=== PATIENT | female | born 1945 | race American Indian/Alaskan Native ===

== ENCOUNTER 2016-10-10 10:52 | Outpatient (CLI) | payer MEDICARE ==
[2016-10-10 11:29] LABS: Hematocrit 35.3 % (30.3-42.9); Hemoglobin 11.6 gm/dl (10.1-14.3); Mean Corpuscular HGB Conc 33 % (30-34); Mean Corpuscular Hemoglobin 27 pg (28-32); Mean Corpuscular Volume 83 fl (79-97); Platelet Count 138 K/mm3 (140-440); Red Blood Count 4.25 M/mm3 (3.65-5.03); White Blood Count 8.4 K/mm3 (4.5-11.0)
[2016-10-10 11:39] LABS: INR 1.08 (0.87-1.13)
[2016-10-10 11:40] LABS: Partial Thromboplastin Time 24.6 Sec. (24.2-36.6)
[2016-10-10 11:43] LABS: Anion Gap 16 mmol/L; BUN/Creatinine Ratio 14.28; Blood Urea Nitrogen 10 mg/dL (7-17); Calcium 9.5 mg/dL (8.4-10.2); Carbon Dioxide 28 mmol/L (22-30); Chloride 101.1 mmol/L (98-107); Glucose 114 mg/dL (65-100); Potassium 4.2 mmol/L (3.6-5.0); Sodium 141 mmol/L (137-145)
[2016-10-10] MEDS ORDERED: NACL ONE (12:19)
== END 2016-10-10 10:53 | disposition home or self-care (01) ==
LOC: CT 10:52
PROVIDERS: ATTEND Radiology Vascular & Interventional Radiology
DX: I70.219 Atherosclerosis of native arteries of extremities with intermittent claudication, unspecified extremity (principal)
CPT/HCPCS: 36415; 75635; 80048; 85027; 85610; 85730; Q9967

== ENCOUNTER 2018-07-29 09:18 | Emergency (ER) | payer MEDICARE ==
--- NOTE | 2018-07-29 10:05 | Emergency Department Report ---
ED General Adult HPI - General Chief complaint: Extremity Problem,Nontraumatic Stated complaint: DIFFICULTY AMBULATING Time Seen by Provider: 07/29/18 09:58 Source: patient, EMS (ems notes not available at time of chart dictation), RN notes reviewed, old records reviewed Mode of arrival: Stretcher Limitations: Other (the patient is a poor historian) - History of Present Illness Initial comments: This is a 72-year-old female. The patient is not known to this provider previously. She reportedly has a past medical history of "vascular problems", hypertension, heart disease, diabetes, DVT The patient presents to the emergency room with a complaint of lower extremity discoloration, and discomfort. She reports the symptoms have been present for " some time", and further endorses that the symptoms have been present for many months. Of note, the patient was registered in this emergency room in April 2018, reportedly left prior to medical evaluation secondary to prolonged wait time. The patient reports that her symptoms today are not new, worsening or different, and that they are at their baseline. She reports that she came in today because her daughter instructed her to. She denies headache, neck pain, chest pain, abdominal pain, shortness of breath, urinary symptoms. She reports that she is hungry, and would like to eat. As far she can recall, she does not have a local vascular physician. She's not sure she has a local primary care doctor. The patient's daughter is a much more comprehensive historian. She reports the patient's primary care doctor is Dr. Jelena Johnson She reports the patient's vascular doctor is Dr. Navas, in [place]. She reports that the patient has chronic vascular problems, had an appointment with the patient's vascular surgeon on June 17, and has a follow-up appointment with her vascular physician on 08/04/2018. The patient has been having difficulty and waiting at home, but reportedly has a cane and a walker. This is a chronic problem. -: Gradual, month(s) Location: upper extremity, lower extremity Radiation: non-radiation Severity scale (0 -10): 4 Consistency: constant Improves with: rest Worsens with: movement Associated Symptoms: denies other symptoms - Related Data Home Medications Medication Instructions Recorded Confirmed Last Taken Aspirin [Adult Aspirin] 81 mg PO DAILY 07/29/18 07/29/18 Unknown Cetirizine HCl [Zyrtec] 10 mg PO DAILY PRN 07/29/18 07/29/18 Unknown Clopidogrel Bisulfate [Plavix] 75 mg PO DAILY 07/29/18 07/29/18 Unknown Enalapril Maleate [Vasotec] 10 mg PO BID 07/29/18 07/29/18 Unknown Furosemide [Lasix TAB] 40 mg PO QDAY 07/29/18 07/29/18 Unknown Ibuprofen [Motrin] 200 mg PO Q6H PRN 07/29/18 07/29/18 Unknown Metformin HCl [Glucophage] 850 mg PO BIDWM 07/29/18 07/29/18 Unknown Nitroglycerin [Nitro Dur] 0.2 mg TD QDAY 07/29/18 07/29/18 Unknown Potassium Chloride [K-Dur] 20 meq PO QDAY 07/29/18 07/29/18 Unknown Propranolol [Inderal] 40 mg PO DAILY 07/29/18 07/29/18 Unknown Ranitidine HCl [Zantac 150 MG TAB] 150 mg PO QPM 07/29/18 07/29/18 Unknown Rosuvastatin Calcium [Crestor] 20 mg PO QPM 07/29/18 07/29/18 Unknown Allergies Allergy/AdvReac Type Severity Reaction Status Date / Time montelukast [From Singulair] Allergy Unknown Verified 07/29/18 09:49 ED Review of Systems ROS: Stated complaint: DIFFICULTY AMBULATING Other details as noted in HPI Constitutional: denies: fever Eyes: denies: vision change ENT: denies: epistaxis Respiratory: denies: cough Cardiovascular: denies: chest pain Gastrointestinal: denies: abdominal pain, nausea, vomiting Genitourinary: denies: dysuria Musculoskeletal: arthralgia, myalgia Skin: other (chronic skin discoloration) Neurological: weakness (global weakness) ED Past Medical Hx - Past Medical History Previous Medical History?: Yes Hx Hypertension: Yes Hx Heart Attack/AMI: Yes Hx Diabetes: Yes Hx Deep Vein Thrombosis: Yes Additional medical history: VASCULAR PROBLEMS - Surgical History Past Surgical History?: Yes Hx Open Heart Surgery: Yes - Social History Smoking Status: Unknown if ever smoked - Medications Home Medications: Home Medications Medication Instructions Recorded Confirmed Last Taken Type Aspirin [Adult Aspirin] 81 mg PO DAILY 07/29/18 07/29/18 Unknown History Cetirizine HCl [Zyrtec] 10 mg PO DAILY PRN 07/29/18 07/29/18 Unknown History Clopidogrel Bisulfate [Plavix] 75 mg PO DAILY 07/29/18 07/29/18 Unknown History Enalapril Maleate [Vasotec] 10 mg PO BID 07/29/18 07/29/18 Unknown History Furosemide [Lasix TAB] 40 mg PO QDAY 07/29/18 07/29/18 Unknown History Ibuprofen [Motrin] 200 mg PO Q6H PRN 07/29/18 07/29/18 Unknown History Metformin HCl [Glucophage] 850 mg PO BIDWM 07/29/18 07/29/18 Unknown History Nitroglycerin [Nitro Dur] 0.2 mg TD QDAY 07/29/18 07/29/18 Unknown History Potassium Chloride [K-Dur] 20 meq PO QDAY 07/29/18 07/29/18 Unknown History Propranolol [Inderal] 40 mg PO DAILY 07/29/18 07/29/18 Unknown History Ranitidine HCl [Zantac 150 MG TAB] 150 mg PO QPM 07/29/18 07/29/18 Unknown History Rosuvastatin Calcium [Crestor] 20 mg PO QPM 07/29/18 07/29/18 Unknown History ED Physical Exam - General Limitations: Physical Limitation General appearance: alert, in no apparent distress, obese - Head Head exam: Present: atraumatic, normocephalic - Eye Eye exam: Present: normal appearance, EOMI. Absent: nystagmus - ENT ENT exam: Present: normal exam, normal orophraynx, mucous membranes moist, normal external ear exam - Neck Neck exam: Present: normal inspection, full ROM. Absent: tenderness, meningismus - Respiratory Respiratory exam: Present: normal lung sounds bilaterally. Absent: respiratory distress - Cardiovascular Cardiovascular Exam: Present: regular rate, normal rhythm, normal heart sounds. Absent: bradycardia, tachycardia, irregular rhythm, systolic murmur, diastolic murmur, rubs, gallop - GI/Abdominal GI/Abdominal exam: Present: soft. Absent: distended, tenderness, guarding, rebound, rigid, pulsatile mass - Extremities Exam Extremities exam: Present: normal inspection, full ROM, tenderness, pedal edema, calf tenderness, other (2+ pulses noted in the bilateral upper extremities. 1+ pulses noted in the right femoral region. Thready pulses noted in the left femoral region. Bilateral lower extremities are swollen, with chronic venous stasis and discoloration. There is a linear scar on the left medial thigh. Pulses not palpable in the bilateral dorsalis pedis regions.) - Back Exam Back exam: Present: normal inspection, full ROM. Absent: tenderness, CVA tenderness (R), paraspinal tenderness, vertebral tenderness - Neurological Exam Neurological exam: Present: alert, oriented X3, other (Extraocular movements intact. Tongue midline. No facial droop. Facial sensation intact to light touch in the V1, V2, V3 distribution bilaterally. 5 and 5 strength in 4 extremities.. Sensation is intact to light touch in 4 extremities.). Absent: motor sensory deficit - Psychiatric Psychiatric exam: Present: normal affect, normal mood - Skin Skin exam: Present: warm, dry ED Course Vital Signs 07/29/18 07/29/18 09:23 10:05 Temperature 98.4 F Pulse Rate 77 Respiratory 18 18 Rate Blood Pressure 149/119 O2 Sat by Pulse 96 99 Oximetry - Reevaluation(s) Reevaluation #1: 07/29/18 10:58 Differential diagnosis, including but not limited to: Chronic peripheral artery disease, debility, DVT assessment and plan: 72-year-old female accompanied by daughter, with chronic lower extremity problems, pain and swelling, does not appear to be acutely infected, does not appear to be acutely decompensated. The patient's daughter is seeking a second opinion. She has follow-up patient's vascular surgeon within the next week. Unlikely that the patient has an emergent condition at this time. Screening laboratory studies unremarkable. Lower extremity duplex, DVT study pending at this time. Case management consult has been requested to assist with home physical therapy and rehabilitation options. 07/29/18 10:59 Reevaluation #2: 07/29/18 13:09 Patient noted to be walking around without difficulty. Patient and daughter states that the weight is taking too long, and they're going to leave before the completion of their medical evaluation, and interpretation of their extremity duplex studies and DVT studies. Patient is alert and oriented 3, clinically sober, free from distracting injury, and is able to articulate the risks of leaving without a complete evaluation, including , disability, paralysis, loss of quality of life, in her own words. Patient's daughter at the bedside, and also endorses a desire to leave, and endorses understanding of the aforementioned possibilities, without a complete medical evaluation. Patient was encouraged to return to the emergency room right away if and when she changes her mind, or to follow up with her vascular surgeon as soon as possible. Of note, DVT study negative for acute disease. Reevaluation #3: 07/29/18 13:11 Nursing team has been instructed to contact the patient, and have her brick picker her discharge paperwork, as she left without receiving her paperwork. ED Medical Decision Making - Lab Data Result diagrams: 07/29/18 10:10 07/29/18 10:10 Vital Signs 07/29/18 07/29/18 09:23 10:05 Temperature 98.4 F Pulse Rate 77 Respiratory 18 18 Rate Blood Pressure 149/119 O2 Sat by Pulse 96 99 Oximetry Lab Results 07/29/18 07/29/18 07/29/18 Range/Units 10:10 10:10 10:10 WBC 5.9 (4.5-11.0) K/mm3 RBC 3.74 (3.65-5.03) M/mm3 Hgb 9.9 L (10.1-14.3) gm/dl Hct 30.9 (30.3-42.9) % MCV 83 (79-97) fl MCH 27 L (28-32) pg MCHC 32 (30-34) % RDW 18.9 H (13.2-15.2) % Plt Count 155 (140-440) K/mm3 PT 16.2 H (12.2-14.9) Sec. INR 1.22 H (0.87-1.13) APTT 27.4 (24.2-36.6) Sec. Sodium (137-145) mmol/L Potassium (3.6-5.0) mmol/L Chloride (98-107) mmol/L Carbon Dioxide (22-30) mmol/L Anion Gap mmol/L BUN (7-17) mg/dL Creatinine (0.7-1.2) mg/dL Estimated GFR ml/min BUN/Creatinine Ratio % Glucose (65-100) mg/dL Calcium (8.4-10.2) mg/dL Magnesium 2.00 (1.7-2.3) mg/dL Total Bilirubin (0.1-1.2) mg/dL AST (5-40) units/L ALT (7-56) units/L Alkaline Phosphatase (35-129) units/L Total Protein (6.3-8.2) g/dL Albumin (3.9-5) g/dL Albumin/Globulin Ratio % 07/29/18 Range/Units 10:10 WBC (4.5-11.0) K/mm3 RBC (3.65-5.03) M/mm3 Hgb (10.1-14.3) gm/dl Hct (30.3-42.9) % MCV (79-97) fl MCH (28-32) pg MCHC (30-34) % RDW (13.2-15.2) % Plt Count (140-440) K/mm3 PT (12.2-14.9) Sec. INR (0.87-1.13) APTT (24.2-36.6) Sec. Sodium 140 (137-145) mmol/L Potassium 3.8 (3.6-5.0) mmol/L Chloride 103.9 (98-107) mmol/L Carbon Dioxide 23 (22-30) mmol/L Anion Gap 17 mmol/L BUN 7 (7-17) mg/dL Creatinine 0.7 (0.7-1.2) mg/dL Estimated GFR > 60 ml/min BUN/Creatinine Ratio 10 % Glucose 107 H (65-100) mg/dL Calcium 8.7 (8.4-10.2) mg/dL Magnesium (1.7-2.3) mg/dL Total Bilirubin 1.40 H (0.1-1.2) mg/dL AST 23 (5-40) units/L ALT 13 (7-56) units/L Alkaline Phosphatase 88 (35-129) units/L Total Protein 7.2 (6.3-8.2) g/dL Albumin 3.5 L (3.9-5) g/dL Albumin/Globulin Ratio 0.9 % - Radiology Data Radiology results: report reviewed, image reviewed Print Report Referring Physician: VICKY OSBORN Patient Name: GAY BONNER Date of : 1945 Sex: Female Report Date: 2018-07-29 Report Status: Finalized Findings [facility] [address] [id number] Vascular Lab Report Signed Patient: GAY BONNER MR#: [id number] : 1945 Acct:[id number] Age/Sex: 72 / F ADM Date: 07/29/18 Loc: ED Attending Dr: Ordering Physician: VICKY OSBORN MD Date of Service: 07/29/18 Procedure(s): VL venous duplex LE BILAT Accession Number(s): [id number] cc: VICKY OSBORN MD PROCEDURE: VL VENOUS DUPLEX LE BILAT TECHNIQUE: Ultrasound examination of the deep venous system of the right leg and left leg. Technologist reports examination limited due to patient's pain and edema. Suboptimal visualization of the SFV and calf veins bilaterally HISTORY: b/l lower ext swelling COMPARISONS: None FINDINGS: RIGHT LEG: Normal compressibility, vascular patency, and augmentation are present diffusely throughout the visualized portion of the deep veins. No abnormal intraluminal echoes are visualized to suggest deep vein thrombus. Nonspecific slight lymph node prominence right inguinal fossa. Lower leg edema. LEFT LEG: Normal compressibility, vascular patency, and augmentation are present diffusely throughout the visualized portion of the deep veins. No abnormal intraluminal echoes are visualized to suggest deep vein thrombus. Lower leg edema. A nonspecific popliteal fossa hypoechoic focus is suggestive of a fluid collection measuring 3.7 x 1.9 cm. Color Doppler reveals no internal vascularity in this lesion. This may reflect a Rico's cyst. IMPRESSION: Popliteal fossa fluid collection suggestive of left leg Rico's cyst. No ultrasound evidence of DVT in the right leg No ultrasound evidence of DVT in the left leg This document is e lectronically signed by Silas Carrillo MD., July 29 2018 01:02:09 PM ET Transcribed By: BAL Dictated By: SILAS CARRILLO MD Electronically Authenticated By: SILAS CARRILLO MD Signed Date/Time: 07/29/18 2695 Critical care attestation.: If time is entered above; I have spent that time in minutes in the direct care of this critically ill patient, excluding procedure time. ED Disposition Clinical Impression: Peripheral artery disease, Dependent edema, Debility, unspecified Disposition: DC-07 LEFT AGAINST MED ADVICE Is pt being admited?: No Does the pt Need Aspirin: No Condition: Undetermined Additional Instructions: Continue outpatient medications. As we discussed, you have left the hospital/emergency room AGAINST MEDICAL ADVICE. By leaving, you risked , disability, paralysis, permanent loss of quality of life. The ER is open 24 hours a day, 7 days a week. It never closes. Please return to the emergency room right away if and when you change your mind. If you decide not to return to the emergency room, please follow-up with the listed physician referrals as soon as possible. Please follow up with the patient's vascular surgeon as soon as possible [employer] Service Director Business Hours: Saturday to Saturday: 8:30 a.m. 4:30 p[address] [address], [address] [place] [address] Case management consult has been requested to determine if the patient is el igible for home physical therapy, home health. Please return to the emergency room right away with new pain, worsened pain, migration of pain, projectile vomiting, change in mental status, confusion, new, worsening or different symptoms. Patient's blood pressure noted to be elevated in the emergency room, the patient should follow-up with her primary care doctor for this within the next 4-6 we eks. Long-term complications of hypertension and elevated blood pressure include stroke, heart attack, disability, paralysis, loss of quality of life
[2018-07-29 10:29] LABS: Hematocrit 30.9 % (30.3-42.9); Hemoglobin 9.9 gm/dl (10.1-14.3); Mean Corpuscular HGB Conc 32 % (30-34); Mean Corpuscular Volume 83 fl (79-97); Platelet Count 155 K/mm3 (140-440); Red Blood Count 3.74 M/mm3 (3.65-5.03); Red Cell Distribution Width 18.9 % (13.2-15.2)
[2018-07-29 10:35] LABS: INR 1.22 (0.87-1.13); Partial Thromboplastin Time 27.4 Sec. (24.2-36.6)
[2018-07-29 10:45] LABS: Alanine Aminotransferase 13 units/L (7-56); Albumin 3.5 g/dL (3.9-5); BUN/Creatinine Ratio 10; Blood Urea Nitrogen 7 mg/dL (7-17); Calcium 8.7 mg/dL (8.4-10.2); Hemolysis Index 20
--- NOTE | 2018-07-29 13:05 | Vascular Lab Report ---
PROCEDURE: VL VENOUS DUPLEX LE BILAT TECHNIQUE: Ultrasound examination of the deep venous system of the right leg and left leg. Technolog ist reports examination limited due to patient's pain and edema. Suboptimal visualization of the SFV and calf veins bilaterally HISTORY: b/l lower ext swelling COMPARISONS: None FINDINGS: RIGHT LEG: Normal compressibility, vascular patency, and augmentation are present diffusely throughout the visua lized portion of the deep veins. No abnormal intraluminal echoes are visualized to suggest deep vein thrombus. Nonspecific slight lymph node prominence right inguinal fossa. Lower leg edema. LEFT LEG: Normal compressibility, vascular patency, and augmentation are present diffusely throughout the visua lized portion of the deep veins. No abnormal intraluminal echoes are visualized to suggest deep vein thrombus. Lower leg edema. A nonspecific popliteal fossa hypoechoic focus is suggestive of a fluid collection measuring 3.7 x 1. 9 cm. Color Doppler reveals no internal vascularity in this lesion. This may reflect a Rico's cyst. IMPRESSION: Popliteal fossa fluid collection suggestive of left leg Rico's cyst. No ultrasound evidence of DVT in the right leg No ultrasound evidence of DVT in the left leg This document is electronically signed by Silas Carrillo MD., July 29 2018 01:02:09 PM ET
[2018-07-29 14:31] VITALS: BP 148/98
--- NOTE | 2018-07-29 14:33 | Vascular Lab Report ---
PROCEDURE: VL ARTERIAL DUPLEX LE BILAT TECHNIQUE: Duplex Doppler ultrasound examination of the arteries of the right leg and left leg. Tech nically difficult exam limited by patient pain and edema. Note: Measurement of carotid stenosis is ba sed on flow velocity values that correlate with the [place] Symptomatic Carotid Endarterectomy Trial (NASCET) based stenosis criteria using the internal carotid artery diameter as the denominator for stenosis calculation. HISTORY: b/l lower ext swelling pain poor pulses COMPARISONS: None FINDINGS: RIGHT LEG: Elevated peak systolic velocities: Proximal REPAIRER HELPER REPAIRER HELPER, 230 cm/s. Distal REPAIRER HELPER, 181 cm/s Proximal Femoral artery, 171 cm/s Distal femoral artery versus collateral circulation, 349 cm/s Abnormal monophasic waveforms in the proximal femoral artery and popliteal artery Flow not visualized in anterior tibial artery. This may be occlusion or artifact of obscured vessel LEFT LEG: Unable to visualize distal iliac artery, common femoral artery, profunda femoral artery, and anterior tibial artery, limiting the examination. No definite acute systolic velocity elevation. Possible stent in proximal femoral artery. Correlate with vascular history. Abnormal monophasic waveforms in all visualized arteries. Visualized flow in region of posterior tibi al artery may be a artery or collateral. IMPRESSION: Examination limited by patient edema and pain tolerance to probe pressure. Some arteries not visualiz ed bilaterally Possible stent in left proximal femoral artery Multilevel velocity elevation in the right leg arteries, above the knee level, may reflect. 50% diame ter stenosis Flow not visualized in right anterior tibial artery may reflect occlusion or artifact of obscured ves laurita Multilevel diminished arterial waveforms bilaterally compatible with multifocal atherosclerotic snyder e This document is electronically signed by Silas Carrillo MD., July 29 2018 02:30:23 PM ET
== END 2018-07-29 12:53 | disposition left against medical advice (07) ==
LOC: ED 09:18
DX: I73.9 Peripheral vascular disease, unspecified (principal); R60.9 Edema, unspecified; R53.81 Other malaise; I10 Essential (primary) hypertension; I25.2 Old myocardial infarction; E11.9 Type 2 diabetes mellitus without complications
CPT/HCPCS: 36415; 80053; 82550; 83735; 85027; 85610; 85730; 93925; 93970

== ENCOUNTER 2019-03-15 08:29 | Inpatient (IN) | payer MEDICARE ==
[2019-03-15] MEDS ORDERED: SODIUM CHLORIDE 0.9% 1000 ML 1,000 ML IV ONE (09:56)
--- NOTE | 2019-03-15 10:01 | Emergency Department Report ---
- General Chief complaint: Weakness Stated complaint: NOT EATEN IN 3 DAYS Time Seen by Provider: 03/15/19 09:54 Source: family, EMS Mode of arrival: Stretcher Limitations: Other - History of Present Illness Initial comments: 73-year-old -[place] female who is currently on hospice with the DNR/DNI comes in by EMS accompanied by daughter for not eating in 3 days. Patient is a dementia patient. Daughter reports the patient has a decubitus ulcer on her right buttocks. Daughter reports that she's been having difficulty given her medication as she does does not want to eat she has been placing it in warm Broth till it dissolves and patient consumes that. MD Complaint: generalized weakness Onset/Timin -: days(s) Location: generalized Associated Symptoms: loss of appetite - Related Data Home Medications Medication Instructions Recorded Confirmed Last Taken Enalapril Maleate [Vasotec] 10 mg PO BID 07/29/18 03/15/19 Unknown Furosemide [Lasix TAB] 40 mg PO QDAY 07/29/18 03/15/19 Unknown Nitroglycerin [Nitro Dur] 0.2 mg TD QDAY 07/29/18 03/15/19 Unknown LORazepam [Ativan] 0.5 mg PO Q4H PRN 03/15/19 03/15/19 Unknown traMADoL [Ultram 50 MG tab] 50 mg PO Q8H 03/15/19 03/15/19 Unknown Previous Rx's Medication Instructions Recorded Last Taken Type Aspirin EC [Halfprin EC] 81 mg PO DAILY tablet 03/19/19 Unknown Rx AtorvaSTATin [Lipitor] 40 mg PO QHS #30 tablet 03/19/19 Unknown Rx cephALEXin [Keflex] 500 mg PO BID #20 cap 03/19/19 Unknown Rx Allergies Allergy/AdvReac Type Severity Reaction Status Date / Time montelukast [From Singulair] Allergy Unknown Verified 07/29/18 09:49 ED Review of Systems ROS: Stated complaint: NOT EATEN IN 3 DAYS Other details as noted in HPI Comment: All other systems reviewed and negative ED Past Medical Hx - Past Medical History Hx Hypertension: Yes Hx Heart Attack/AMI: Yes Hx Diabetes: Yes Hx Deep Vein Thrombosis: Yes Additional medical history: VASCULAR PROBLEMS - Surgical History Hx Open Heart Surgery: Yes - Social History Smoking Status: Unknown if ever smoked Substance Use Type: None - Medications Home Medications: Home Medications Medication Instructions Recorded Confirmed Last Taken Type Enalapril Maleate [Vasotec] 10 mg PO BID 07/29/18 03/15/19 Unknown History Furosemide [Lasix TAB] 40 mg PO QDAY 07/29/18 03/15/19 Unknown History Nitroglycerin [Nitro Dur] 0.2 mg TD QDAY 07/29/18 03/15/19 Unknown History LORazepam [Ativan] 0.5 mg PO Q4H PRN 03/15/19 03/15/19 Unknown History traMADoL [Ultram 50 MG tab] 50 mg PO Q8H 03/15/19 03/15/19 Unknown History Aspirin EC [Halfprin EC] 81 mg PO DAILY tablet 03/19/19 Unknown Rx AtorvaSTATin [Lipitor] 40 mg PO QHS #30 tablet 03/19/19 Unknown Rx cephALEXin [Keflex] 500 mg PO BID #20 cap 03/19/19 Unknown Rx ED Physical Exam - General Limitations: Altered Mental Status (dementia), Other - Head Head exam: Present: atraumatic, normocephalic - Eye Eye exam: Present: normal appearance - ENT ENT exam: Present: mucous membranes dry - Neck Neck exam: Present: normal inspection, full ROM - Respiratory Respiratory exam: Present: normal lung sounds bilaterally. Absent: respiratory distress - Cardiovascular Cardiovascular Exam: Present: tachycardia - GI/Abdominal GI/Abdominal exam: Present: soft, normal bowel sounds. Absent: distended, tenderness - Neurological Exam Neurological exam: Present: alert - Expanded Skin Exam Expanded Distribution of rash: RLE (hip) Description of rash: Present: size (half a dollar ), tenderness, erythematous ED Course Vital Signs 03/15/19 03/15/19 03/15/19 10:04 11:15 14:00 Temperature 97.8 F Pulse Rate 119 H 122 H 120 H Respiratory 20 23 23 Rate Blood Pressure Blood Pressure 112/79 101/42 99/36 [Right] O2 Sat by Pulse 100 98 97 Oximetry 03/15/19 14:58 Temperature Pulse Rate 112 H Respiratory Rate Blood Pressure 110/63 Blood Pressure [Right] O2 Sat by Pulse Oximetry ED Medical Decision Making - Lab Data Result diagrams: 03/19/19 05:55 03/17/19 05:43 Critical care attestation.: If time is entered above; I have spent that time in minutes in the direct care of this critically ill patient, excluding procedure time. ED Disposition Clinical Impression: Sepsis Qualifiers: Sepsis acute organ dysfunction status: unspecified Decubitus skin ulcer Qualifiers: Pressure injury location: sacral region Pressure injury stage: unstageable Qualified Code(s): L89.150 - Pressure ulcer of sacral region, unstageable T2DM (type 2 diabetes mellitus) Qualifiers: Diabetes mellitus longterm insulin use: unspecified intermediate teacher insulin use status HTN (hypertension) Qualifiers: Hypertension type: essential hypertension Qualified Code(s): I10 - Essential (primary) hypertension Disposition: OP ADMIT IP TO THIS HOSP Is pt being admited?: Yes Does the pt Need Aspirin: Yes Condition: Poor
--- NOTE | 2019-03-15 12:01 | XRay Report ---
CHEST 1 VIEW, 03/15/2019 11:27 AM CLINICAL INFORMATION/INDICATION: Chest pain and shortness of breath COMPARISON: Chest radiograph, 08/06/2018 FINDINGS: SUPPORT DEVICES: None. HEART: There is stable moderate enlargement of the cardiac silhouette. LUNGS/PLEURA: Prominent interstitial markings are again noted without evidence of sophia pulmonary ricco ma or large pleural effusion. ADDITIONAL FINDINGS: No additional acute findings. IMPRESSION: 1. Stable enlargement of the cardiac silhouette without evidence of overt pulmonary edema. Signer Name: Lyubov Suárez MD Signed: 03/15/2019 11:57 AM Workstation Name: [id number]
[2019-03-15 12:02] LABS: Creatine Kinase MB 7.2 ng/mL (0.0-4.0)
[2019-03-15 12:03] LABS: Basophils # (Auto) 0.1 K/mm3 (0.0-0.1); Basophils % (Auto) 0.4 % (0.0-1.8); Hematocrit 41.8 % (30.3-42.9); Hemoglobin 13.9 gm/dl (10.1-14.3); Lymphocytes # (Auto) 1.5 K/mm3 (1.2-5.4); Lymphocytes % (Auto) 9.7 % (13.4-35.0); Mean Corpuscular HGB Conc 33 % (30-34); Mean Corpuscular Volume 86 fl (79-97); Monocytes # (Auto) 1.2 K/mm3 (0.0-0.8); Monocytes % (Auto) 7.8 % (0.0-7.3); Platelet Count 254 K/mm3 (140-440); Red Blood Count 4.87 M/mm3 (3.65-5.03); Red Cell Distribution Width 15.1 % (13.2-15.2)
[2019-03-15 12:06] LABS: Alanine Aminotransferase 18 units/L (7-56); Albumin 3.6 g/dL (3.9-5); BUN/Creatinine Ratio 35; Blood Urea Nitrogen 28 mg/dL (7-17); Calcium 9.9 mg/dL (8.4-10.2); Hemolysis Index 8
[2019-03-15] MEDS ORDERED: MEROPENEM/NS 1 GRAM/100 ML 1 GRAM/100 ML BAG IV ONE (12:19)
[2019-03-15 12:26] LABS: INR 1.31 (0.87-1.13); Partial Thromboplastin Time 25.4 Sec. (24.2-36.6)
[2019-03-15 12:49] LABS: Chol/HDL Ratio 4.48 %
--- NOTE | 2019-03-15 12:54 | History and Physical Report ---
History of Present Illness Chief complaint: She is getting worse, and her wound looks bad History of present illness: 73 YO Female with HTN, Sacral Decubitus Ulcer present to admission, CAG S/P CABG, MA, DM, DVT not on therapeutic anticoagulation, PVD presents to ED for evaluation. Pt daughter notified hospice provider and revoked hospice benefit and request aggressive medical care. Pt is confused and lethargic and unable to provide detailed history. Pt history provided by daughter who is at bedside during exam and interview. As per daughter, the patient has become increasingly confused, has decreased interaction with family, and has not eaten inthe past 3 days. Pt is bedbound, and requires 5/6 assistance with ADL's. Pt daughter also reports worsening discharge from Right sacral Ulcer. EMS notified, and upon arrival the patient was found to be in distress. Pt transported to [facility]. Pt seen and evaluated in ED and found to have Sepsis, and infected sacral decuitus ulcer. Pt admitted to [facility] unit and initiated on Sepsis protocol. Q sofa score:3. Pt is confused and lethargic but is able to protect her airway. Prior admission on 08/06/18 reviewed. All listed medication reconciled at time of admission. Advanced care planning conducted in ED. Past History Past Medical History: other (see hpi) Past Surgical History: CABG Social history: . denies: smoking, alcohol abuse, prescription drug abuse Family history: diabetes, hypertension Medications and Allergies Allergies Allergy/AdvReac Type Severity Reaction Status Date / Time montelukast [From Singulair] Allergy Unknown Verified 07/29/18 09:49 Home Medications Medication Instructions Recorded Confirmed Last Taken Type Enalapril Maleate [Vasotec] 10 mg PO BID 07/29/18 03/15/19 Unknown History Furosemide [Lasix TAB] 40 mg PO QDAY 07/29/18 03/15/19 Unknown History Nitroglycerin [Nitro Dur] 0.2 mg TD QDAY 07/29/18 03/15/19 Unknown History LORazepam [Ativan] 0.5 mg PO Q4H PRN 03/15/19 03/15/19 Unknown History traMADol [Ultram 50 MG tab] 50 mg PO Q8H 03/15/19 03/15/19 Unknown History Active Meds: Active Medications MEROPENEM/NS 1 GRAM/100 ML (Merrem/Ns 1 Gram/100 Ml) 1 gram in 100 mls @ 100 mls/hr IV ONCE ONE Stop: 03/15/19 13:18 Vancomycin HCl 1,250 mg/ (Sodium Chloride) 275 mls @ 183.333 mls/hr IV ONCE ONE Stop: 03/15/19 14:29 Review of Systems ROS unobtainable: due to mental status Exam - Constitutional Vitals: Temp Pulse Resp BP Pulse Ox 97.8 F 119 H 20 112/79 100 03/15/19 10:04 03/15/19 10:04 03/15/19 10:04 03/15/19 10:04 03/15/19 10:04 General appearance: Present: mild distress - EENT Eyes: Present: PERRL ENT: hearing intact, clear oral mucosa - Neck Neck: Present: supple, normal ROM - Respiratory Respiratory effort: normal Respiratory: bilateral: CTA - Cardiovascular Heart Sounds: Present: S1 & S2. Absent: rub, click - Extremities Extremities: pulses symmetrical, No edema Peripheral Pulses: within normal limits - Abdominal General gastrointestinal: Present: soft, non-tender, non-distended, normal bowel sounds Female genitourinary: Present: normal - Integumentary Integumentary: Present: warm (Sacral decubitus ulcer, ), dry - Musculoskeletal Musculoskeletal: generalized weakness - Psychiatric Psychiatric: no appropriate mood/affect, no intact judgment & insight, no memory intact - Neurologic Neurologic: CNII-XII intact, moves all extremities Results - Labs CBC & Chem 7: 03/15/19 11:15 03/15/19 11:15 Labs: Abnormal lab results 03/15/19 03/15/19 03/15/19 Range/Units 11:15 11:15 11:15 WBC 15.7 H (4.5-11.0) K/mm3 Lymph % (Auto) 9.7 L (13.4-35.0) % [place] % (Auto) 7.8 H (0.0-7.3) % [place] # 1.2 H (0.0-0.8) K/mm3 Seg Neutrophils % 82.1 H (40.0-70.0) % Seg Neutrophils # 12.9 H (1.8-7.7) K/mm3 PT 16.1 H (12.2-14.9) Sec. INR 1.31 H (0.87-1.13) BUN 28 H (7-17) mg/dL Glucose 152 H (65-100) mg/dL Lactic Acid (0.7-2.0) mmol/L Total Creatine Kinase (30-135) units/L CK-MB (CK-2) (0.0-4.0) ng/mL Troponin T (0.00-0.029) ng/mL NT-Pro-B Natriuret Pep (0-900) pg/mL Albumin 3.6 L (3.9-5) g/dL HDL Cholesterol (40-59) mg/dL 03/15/19 03/15/19 03/15/19 Range/Units 11:15 11:15 12:14 WBC (4.5-11.0) K/mm3 Lymph % (Auto) (13.4-35.0) % [place] % (Auto) (0.0-7.3) % [place] # (0.0-0.8) K/mm3 Seg Neutrophils % (40.0-70.0) % Seg Neutrophils # (1.8-7.7) K/mm3 PT (12.2-14.9) Sec. INR (0.87-1.13) BUN (7-17) mg/dL Glucose (65-100) mg/dL Lactic Acid 3.90 H* 2.40 H* (0.7-2.0) mmol/L Total Creatine Kinase 408 H (30-135) units/L CK-MB (CK-2) 7.2 H (0.0-4.0) ng/mL Troponin T 0.062 H (0.00-0.029) ng/mL NT-Pro-B Natriuret Pep 74883 H (0-900) pg/mL Albumin (3.9-5) g/dL HDL Cholesterol 39 L (40-59) mg/dL Assessment and Plan - Patient Problems (1) Sepsis Current Visit: Yes Status: Acute Qualifiers: Sepsis acute organ dysfunction status: unspecified Plan to address problem: Sepsis Protocol: IV antibiotic therapy, IVF resuscitation therapy, serial lactic acid, monitor uop q shift, CBC, CMP, Chest x ray, urinalysis, blood cultures (2) Diabetes Current Visit: Yes Status: Acute Plan to address problem: ADA diet, insulin, Accu check, hypoglycemia protocol (3) CHF (congestive heart failure) Current Visit: No Status: Acute Qualifiers: Heart failure type: systolic Heart failure chronicity: acute on chronic Qualified Code(s): I50.23 - Acute on chronic systolic (congestive) heart failure Plan to address problem: Strict I/O, daily weight, monitor uop q shift, monitor fluid balance, supplemental oxygen, pulse oximetry, BNP, chext x ray. (4) HTN (hypertension) Current Visit: No Status: Chronic Qualifiers: Hypertension type: essential hypertension Qualified Code(s): I10 - Essential (primary) hypertension Plan to address problem: Monitor bp q shift, continue medical management. (5) Advance care planning Current Visit: Yes Status: Acute Plan to address problem: +30 min. Code status discussed: Pt is AND/DNR, discussed patient prognosis. Pt daughter acknowledges understanding and agrees with care plan. (6) Encephalopathy Current Visit: Yes Status: Acute Plan to address problem: Metabolic: supportive care, neuro check, aspiration precautions, seizure precautions, fall precautions. (7) DVT prophylaxis Current Visit: No Status: Acute Plan to address problem: SCD to BLE while in bed,
[2019-03-15] MEDS ORDERED: VANCOMYCIN PHARMACY TO DOSE IV SCH (13:00)
[2019-03-15] MEDS ORDERED: VANCOMYCIN 1,250 MG in SODIUM CHLORIDE 0.9% 250ML 250 ML IV ONE (13:00)
[2019-03-15] MEDS ORDERED: ALBUTEROL 2.5 MG/3 ML NEBU IH PRN (13:10)
[2019-03-15] MEDS ORDERED: ACETAMINOPHEN 325 MG TAB PO PRN (13:10)
[2019-03-15] MEDS ORDERED: SODIUM CHLORIDE 0.9% 1000 ML IV SOLN IV ONE (13:10)
[2019-03-15] MEDS ORDERED: ONDANSETRON 4 MG/2 ML INJ IV PRN (13:10)
[2019-03-15] MEDS ORDERED: CETIRIZINE HCL 10 MG PO PRN (13:14)
[2019-03-15] MEDS ORDERED: IBUPROFEN 200 MG TAB PO PRN (13:14)
[2019-03-15] MEDS ORDERED: SODIUM CHLORIDE 0.9% 1000 ML 1,000 ML ONE ×2 (14:09→15:30)
[2019-03-15] MEDS: POTASSIUM CHLORIDE ER 20 MEQ TAB PO SCH (14:57)
[2019-03-15] MEDS: LORATADINE (NF) 10 MG TAB PO SCH (14:57)
[2019-03-15] MEDS: FUROSEMIDE 40 MG TAB PO SCH (14:58)
[2019-03-15] MEDS: METOPROLOL SUCCINATE XL 25 MG TAB PO SCH (14:58)
[2019-03-15] MEDS: NITROGLYCERIN 0.2 MG PATCH 24HR TD SCH (14:59)
[2019-03-15] MEDS ORDERED: NON-FORMULARY EACH (Ranitidine Hcl [Zantac] 150 MG) PO SCH (18:00)
[2019-03-15] MEDS ORDERED: NON-FORMULARY EACH (Rosuvastatin Calcium [Crestor] 20 MG) PO SCH (18:00)
[2019-03-15] MEDS ORDERED: ENALAPRIL MALEATE 10 MG PO SCH (22:00)
[2019-03-16] MEDS: FAMOTIDINE 20 MG TAB PO SCH ×2 (00:18→22:42)
[2019-03-16] MEDS: LISINOPRIL 10 MG TAB PO SCH ×3 (00:19→22:45)
[2019-03-16] MEDS: POTASSIUM CHLORIDE ER 20 MEQ TAB PO SCH (02:47)
[2019-03-16] MEDS: ACETAMINOPHEN 325 MG TAB PO PRN (08:14)
[2019-03-16] MEDS: NITROGLYCERIN 0.2 MG PATCH 24HR TD SCH (10:31)
[2019-03-16] MEDS: FUROSEMIDE 40 MG TAB PO SCH (10:31)
[2019-03-16] MEDS: METOPROLOL SUCCINATE XL 25 MG TAB PO SCH (10:31)
[2019-03-16] MEDS: LORATADINE (NF) 10 MG TAB PO SCH (10:31)
[2019-03-16] MEDS: CLOPIDOGREL 75 MG TAB PO SCH (10:31)
[2019-03-16] MEDS: ASPIRIN EC 81 MG TAB PO SCH (10:31)
[2019-03-16] MEDS: POTASSIUM CHLORIDE 20 MEQ PACKET PO SCH ×2 (11:22→22:42)
[2019-03-16] MEDS ORDERED: SODIUM CHLORIDE 0.9% 1000 ML 1,000 ML IV ONE (11:25)
[2019-03-16] MEDS ORDERED: SODIUM CHLORIDE 0.9% 1000 ML 1,000 ML ONE (11:35)
[2019-03-16 12:12] LABS: Creatine Kinase MB 18.8 ng/mL (0.0-4.0)
[2019-03-16] MEDS: VANCOMYCIN/NS 1 GM/250 ML 1 GM/250 ML BAG IV SCH (13:39)
--- NOTE | 2019-03-16 14:16 | Consultation ---
History of Present Illness - Reason for Consult Consult date: 03/16/19 - History of Present Illness 73 yo F PMHx HTn, chronic sacral decub, CAD s/p CABG, DM2, DVT, PVD presented to the hospital from hospice after hospice was revoked hospice care. Patient was found to be confused and altered which had progressed over the 3 days prior to admission with associated decreased PO intake over that time. She is completely bedbound and has a long history of sacral decub in the past. It was ntoed by family that the discharge from the wound has increased and that they subjectively felt that it looked worse. she was last admitted here in July, and at that time she was not evaluated by the ID service. Febrile to 101.4 with an elevated white count. Currently receiving vancomycin. Blood cultures thus far negative. Imaging personally reviewed: None obtained thus far Past History Past Medical History: other (see hpi) Past Surgical History: CABG Social history: . denies: smoking, alcohol abuse, prescription drug abuse Family history: diabetes, hypertension Medications and Allergies Allergies Allergy/AdvReac Type Severity Reaction Status Date / Time montelukast [From Singulair] Allergy Unknown Verified 07/29/18 09:49 Home Medications Medication Instructions Recorded Confirmed Last Taken Type Enalapril Maleate [Vasotec] 10 mg PO BID 07/29/18 03/15/19 Unknown History Furosemide [Lasix TAB] 40 mg PO QDAY 07/29/18 03/15/19 Unknown History Nitroglycerin [Nitro Dur] 0.2 mg TD QDAY 07/29/18 03/15/19 Unknown History LORazepam [Ativan] 0.5 mg PO Q4H PRN 03/15/19 03/15/19 Unknown History traMADol [Ultram 50 MG tab] 50 mg PO Q8H 03/15/19 03/15/19 Unknown History Active Meds: Active Medications Acetaminophen (Tylenol) 650 mg PO Q4H PRN PRN Reason: Pain MILD(1-3)/Fever >100.5/RUSH Last Admin: 03/16/19 08:14 Dose: 650 mg Documented by: Albuterol (Proventil) 2.5 mg IH Q4H PRN PRN Reason: Shortness Of Breath Aspirin (Halfprin Ec) 81 mg PO DAILY KURT Last Admin: 03/16/19 10:31 Dose: 81 mg Documented by: Atorvastatin Calcium (Lipitor) 40 mg PO QHS [facility] Last Admin: 03/16/19 00:18 Dose: Not Given Documented by: Clopidogrel Bisulfate (Plavix) 75 mg PO DAILY [facility] Last Admin: 03/16/19 10:31 Dose: 75 mg Documented by: Famotidine (Pepcid) 20 mg PO QHS [facility] Last Admin: 03/16/19 00:18 Dose: Not Given Documented by: Furosemide (Lasix) 40 mg PO QDAY [facility] Last Admin: 03/16/19 10:31 Dose: 40 mg Documented by: Vancomycin HCl (Vancomycin/Ns 1 Gm/250 Ml) 1 gm in 250 mls @ 166.667 mls/hr IV Q24H [facility] Last Admin: 03/16/19 13:39 Dose: 166.667 mls/hr Documented by: Ibuprofen (Ibuprofen) 200 mg PO Q6H PRN PRN Reason: Pain, Moderate (4-6) Lisinopril (Zestril) 10 mg PO BID [facility] Last Admin: 03/16/19 10:31 Dose: 10 mg Documented by: Loratadine (Claritin) 10 mg PO DAILY [facility] Last Admin: 03/16/19 10:31 Dose: 10 mg Documented by: Metoprolol Succinate (Metoprolol Xl) 25 mg PO QDAY [facility] Last Admin: 03/16/19 10:31 Dose: 25 mg Documented by: Nitroglycerin (Nitro Dur) 0.2 mg TD QDAY [facility] Last Admin: 03/16/19 10:31 Dose: 0.2 mg Documented by: Ondansetron HCl (Zofran) 4 mg IV Q8H PRN PRN Reason: Nausea And Vomiting Potassium Chloride (Potassium Chloride) 20 meq PO Q12HR [facility] Last Admin: 03/16/19 11:22 Dose: 20 meq Documented by: Sodium Chloride (Sodium Chloride Flush Syringe 10 Ml) 10 ml IV BID [facility] Last Admin: 03/16/19 10:32 Dose: 10 ml Documented by: Sodium Chloride (Sodium Chloride Flush Syringe 10 Ml) 10 ml IV PRN PRN PRN Reason: LINE FLUSH Review of Systems ROS unobtainable: due to mental status Physical Examination - Physical Exam Narrative exam: Constitutional: Minimally responsive, no acute distress Head, Ears, Nose: Normocephalic, atraumatic. External ears, nose normal Eyes: Conjunctivae/corneas clear. No icterus. No ptosis. Neck: Supple, no meningeal signs Oral: dentition fair, no thrush Cardiovascular: S1, S2 normal. Respiratory: Good air entry, clear to auscultation bilaterally GI: Soft, non-tender; bowel sounds normal. No peritoneal signs. Musculoskeletal: No pedal edema, no cyanosis. Sacral decub noted on images in chart Skin: No rash or abscess Hem/Lymphatic: No palpable cervical or supraclavicular nodes. No lymphangitis Neurological: Non-responsive. No gross abnormality - Constitutional Vitals: Vital Signs Temp Pulse Resp BP Pulse Ox 97.7 F 95 H 18 100/54 97 03/16/19 13:27 03/16/19 13:27 03/16/19 13:27 03/16/19 13:27 03/16/19 13:27 Temperature -Last 24 Hours Temperature 97.7 F Temperature 101.4 F Temperature 99.0 F Temperature 98.4 F Temperature 97.3 F Results - Labs CBC & Chem 7: 03/15/19 11:15 03/15/19 11:15 Labs: Abnormal lab results 03/15/19 03/15/19 03/16/19 Range/Units 20:16 23:00 07:46 POC Glucose 141 H (70-105) Lactic Acid 2.40 H* 2.30 H* (0.7-2.0) mmol/L Total Creatine Kinase (30-135) units/L CK-MB (CK-2) (0.0-4.0) ng/mL Troponin T (0.00-0.029) ng/mL 03/16/19 03/16/19 03/16/19 Range/Units 11:29 11:29 11:34 POC Glucose 164 H (70-105) Lactic Acid 2.90 H* (0.7-2.0) mmol/L Total Creatine Kinase 1761 H (30-135) units/L CK-MB (CK-2) 18.8 H (0.0-4.0) ng/mL Troponin T 0.158 H* D (0.00-0.029) ng/mL 03/16/19 Range/Units 12:58 POC Glucose (70-105) Lactic Acid 3.50 H* (0.7-2.0) mmol/L Total Creatine Kinase (30-135) units/L CK-MB (CK-2) (0.0-4.0) ng/mL Troponin T (0.00-0.029) ng/mL Assessment and Plan Cultures: 03/15/19 blood culture - NGTD A/P: 73 yo F PMHx HTn, chronic sacral decub, CAD s/p CABG, DM2, DVT, PVD admitted with sepsis secondary to an infected chronic sacral decub. 1. Acute sepsis - present on admission with fevers, leukocytosis, tachycardia. Secondary to infected chronic sacral decub. 2. Infected chronic sacral decub - most likely gram positive etiology. i ordered wound cultures to be obtained by wound care. Would add cefepime for gram negative coverage at the present time. would not recommend treating for os teomyelitis course given overall prognosis and poor wound healing of the wound. Pending wound cultures will hopefully be able to have a pathogen directed antibiotic course for 2 weeks. 3. DM2 - tight glycemic control for improved wound healing. Recs: - continue vancomycin goal trough 15-20 with pharmacy dosing. - Start cefepime 2g q8h - obtain wound culture - follow up wound care Thank you for the consult, we will continue to follow. Lucila Caballero MD [facility], [facility] ([facility] M: [phone] O: [phone] F: [phone]
--- NOTE | 2019-03-16 15:24 | Progress Note ---
Assessment and Plan Assessment and plan: 73 YO Female with HTN, Sacral Decubitus Ulcer present to admission, CAG S/P CABG, MD, DM, DVT not on therapeutic anticoagulation, PVD presents to ED for evaluation. Pt daughter notified hospice provider and revoked hospice benefit and request aggressive medical care. Pt is confused and lethargic and unable to provide detailed history. Pt history provided by daughter who is at bedside during exam and interview. As per daughter, the patient has become increasingly confused, has decreased interaction with family, and has not eaten inthe past 3 days. Pt is bedbound, and requires 5/6 assistance with ADL's. Pt daughter also reports worsening discharge from Right sacral Ulcer. EMS notified, and upon arr ival the patient was found to be in distress. Pt transported to [facility]. Pt seen and evaluated in ED and found to have Sepsis, and infected sacral decuitus ulcer. Pt admitted to [facility] unit and initiated on Sepsis protocol. Q sofa score:3. Pt is confused and lethargic but is able to protect her airway. Prior admission on 08/06/18 reviewed. Severe Sepsis Diabetes Mellitus CHF Type 2 MD secondary to sepsis- CABG Infected Chronic Sacral Ulcer DM type 2 Metabolic Encephalopathy Advance Care planning Rhabdomylysis Plan Continue supportive care Transfer to Telemetry unit considering Elevated trops Obtain cardiology consult Continue diabetic management- strict control Abx Per ID ID consult Give 2 units of Fluids bolus and continue maintainer carefully considering heart failure Wound care consult +30 min. Code status discussed: Pt is AND/DNR, discussed patient prognosis. Pt daughter acknowledges understanding and agrees with care plan. DVT/GI prophy speech therapy for po intake. patient was a hospice patient but Rescinded BY FAMILY History Interval history: Patient seen and examined, no acute distress. Poor mentation. Hospitalist Physical - Physical exam Narrative exam: General appearance: Present: lethargic, no distress - EENT Eyes: Present: PERRL ENT: hearing intact, clear oral mucosa - Neck Neck: Present: supple, normal ROM - Respiratory Respiratory effort: normal Respiratory: bilateral: CTA - Cardiovascular Heart Sounds: Present: S1 & S2. Absent: rub, click - Extremities Extremities: pulses symmetrical, No edema Peripheral Pulses: within normal limits - Abdominal General gastrointestinal: Present: soft, non-tender, non-distended, normal bowel sounds Female genitourinary: Present: normal - Integumentary Integumentary: Present: warm (Sacral decubitus ulcer, ), dry - Musculoskeletal Musculoskeletal: generalized weakness - Psychiatric Psychiatric: no appropriate mood/affect, no intact judgment & insight, no memory intact - Neurologic Neurologic: CNII-XII intact, moves all extremities - Constitutional Vitals: Temp Pulse Resp BP Pulse Ox 97.7 F 95 H 18 100/54 97 03/16/19 13:27 03/16/19 13:27 03/16/19 13:27 03/16/19 13:27 03/16/19 13:27 General appearance: Present: mild distress Results - Labs CBC & Chem 7: 03/15/19 11:15 03/15/19 11:15 Labs: Laboratory Last Values WBC 15.7 K/mm3 (4.5-11.0) H 03/15/19 11:15 RBC 4.87 M/mm3 (3.65-5.03) 03/15/19 11:15 Hgb 13.9 gm/dl (10.1-14.3) 03/15/19 11:15 Hct 41.8 % (30.3-42.9) 03/15/19 11:15 MCV 86 fl (79-97) 03/15/19 11:15 MCH 28 pg (28-32) 03/15/19 11:15 MCHC 33 % (30-34) 03/15/19 11:15 RDW 15.1 % (13.2-15.2) 03/15/19 11:15 Plt Count 254 K/mm3 (140-440) 03/15/19 11:15 Lymph % (Auto) 9.7 % (13.4-35.0) L 03/15/19 11:15 [place] % (Auto) 7.8 % (0.0-7.3) H 03/15/19 11:15 Eos % (Auto) 0.0 % (0.0-4.3) 03/15/19 11:15 Baso % (Auto) 0.4 % (0.0-1.8) 03/15/19 11:15 Lymph # 1.5 K/mm3 (1.2-5.4) 03/15/19 11:15 [place] # 1.2 K/mm3 (0.0-0.8) H 03/15/19 11:15 Eos # 0.0 K/mm3 (0.0-0.4) 03/15/19 11:15 Baso # 0.1 K/mm3 (0.0-0.1) 03/15/19 11:15 Seg Neutrophils % 82.1 % (40.0-70.0) H 03/15/19 11:15 Seg Neutrophils # 12.9 K/mm3 (1.8-7.7) H 03/15/19 11:15 PT 16.1 Sec. (12.2-14.9) H 03/15/19 11:15 INR 1.31 (0.87-1.13) H 03/15/19 11:15 APTT 25.4 Sec. (24.2-36.6) 03/15/19 11:15 Sodium 144 mmol/L (137-145) 03/15/19 11:15 Potassium 4.4 mmol/L (3.6-5.0) 03/15/19 11:15 Chloride 98.2 mmol/L (98-107) 03/15/19 11:15 Carbon Dioxide 28 mmol/L (22-30) 03/15/19 11:15 Anion Gap 22 mmol/L 03/15/19 11:15 BUN 28 mg/dL (7-17) H 03/15/19 11:15 Creatinine 0.8 mg/dL (0.7-1.2) 03/15/19 11:15 Estimated GFR > 60 ml/min 03/15/19 11:15 BUN/Creatinine Ratio 35 % 03/15/19 11:15 Glucose 152 mg/dL (65-100) H 03/15/19 11:15 POC Glucose 164 (70-105) H 03/16/19 11:34 Lactic Acid 3.50 mmol/L (0.7-2.0) H* 03/16/19 12:58 Calcium 9.9 mg/dL (8.4-10.2) 03/15/19 11:15 Magnesium 2.10 mg/dL (1.7-2.3) 03/15/19 11:15 Total Bilirubin 0.60 mg/dL (0.1-1.2) 03/15/19 11:15 AST 33 units/L (5-40) 03/15/19 11:15 ALT 18 units/L (7-56) 03/15/19 11:15 Alkaline Phosphatase 86 units/L (35-129) 03/15/19 11:15 Total Creatine Kinase 1761 units/L (30-135) H 03/16/19 11:29 CK-MB (CK-2) 18.8 ng/mL (0.0-4.0) H 03/16/19 11:29 CK-MB (CK-2) Rel Index 1.0 (0-4) 03/16/19 11:29 Troponin T 0.158 ng/mL (0.00-0.029) H* D 03/16/19 11:29 NT-Pro-B Natriuret Pep 92925 pg/mL (0-900) H 03/15/19 11:15 Total Protein 7.5 g/dL (6.3-8.2) 03/15/19 11:15 Albumin 3.6 g/dL (3.9-5) L 03/15/19 11:15 Albumin/Globulin Ratio 0.9 % 03/15/19 11:15 Triglycerides 116 mg/dL (2-149) 03/15/19 11:15 Cholesterol 175 mg/dL (50-199) 03/15/19 11:15 LDL Cholesterol Direct 116 mg/dL (50-130) 03/15/19 11:15 HDL Cholesterol 39 mg/dL (40-59) L 03/15/19 11:15 Cholesterol/HDL Ratio 4.48 % 03/15/19 11:15 Active Medications - Current Medications Current Medications: Generic Name Dose Route Start Last Admin Trade Name Freq PRN Reason Stop Dose Admin Acetaminophen 650 mg 03/15/19 13:14 03/16/19 08:14 Tylenol PO 650 mg Q4H PRN Administration Pain MILD(1-3)/Fever >100.5/RUSH Albuterol 2.5 mg 03/15/19 13:10 Proventil IH Q4H PRN Shortness Of Breath Aspirin 81 mg 03/16/19 10:00 03/16/19 10:31 Halfprin Ec PO 81 mg DAILY KURT Administration Atorvastatin Calcium 40 mg 03/15/19 22:00 03/16/19 00:18 Lipitor PO Not Given QHS KURT Clopidogrel Bisulfate 75 mg 03/16/19 10:00 03/16/19 10:31 Plavix PO 75 mg DAILY KURT Administration Famotidine 20 mg 11/03/19 22:00 03/16/19 00:18 Pepcid PO Not Given QHS KURT Furosemide 40 mg 03/15/19 14:00 03/16/19 10:31 Lasix PO 40 mg QDAY KURT Administration Heparin Sodium (Porcine) 5,000 unit 03/16/19 22:00 Heparin SUB-Q Q12HR KURT Vancomycin HCl 1 gm in 250 mls @ 166.667 mls/hr 03/16/19 13:00 03/16/19 13:39 Vancomycin/Ns 1 Gm/250 Ml IV 166.667 mls/hr Q24H KURT Administration Ibuprofen 200 mg 03/15/19 13:14 Ibuprofen PO Q6H PRN Pain, Moderate (4-6) Lisinopril 10 mg 03/15/19 22:00 03/16/19 10:31 Zestril PO 10 mg BID KURT Administration Loratadine 10 mg 03/15/19 14:00 03/16/19 10:31 Claritin PO 10 mg DAILY KURT Administration Metoprolol Succinate 25 mg 03/15/19 14:00 03/16/19 10:31 Metoprolol Xl PO 25 mg QDAY KURT Administration Nitroglycerin 0.2 mg 03/15/19 14:00 03/16/19 10:31 Nitro Dur TD 0.2 mg QDAY KURT Administration Ondansetron HCl 4 mg 03/15/19 13:10 Zofran IV Q8H PRN Nausea And Vomiting Potassium Chloride 20 meq 03/16/19 11:30 03/16/19 11:22 Potassium Chloride PO 20 meq Q12HR KURT Administration Sodium Chloride 10 ml 03/15/19 22:00 03/16/19 10:32 Sodium Chloride Flush Syringe 10 Ml IV 10 ml BID KURT Administration Sodium Chloride 10 ml 03/15/19 13:10 Sodium Chloride Flush Syringe 10 Ml IV PRN PRN LINE FLUSH Nutrition/Malnutrition Assess - Dietary Evaluation Nutrition/Malnutrition Findings: Nutrition Notes Start: 03/16/19 14:08 Freq: Status: Active Protocol: Document 03/16/19 14:08 OH (Rec: 03/16/19 14:18 OH [id number]) Nutrition Notes Need for 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 w/hx of difficulty chewing. Pt. screened for malnutrition. Pt. is awaiting a ST SCREEN. Pt. confused and unable to answer questions. Per RN medications required to be crushed. EDITED: ST completed and recommends clear liquid diet w /alternate nutrition source if clear liquid diet not tolerated/adequate Percent of energy/protein needs met: 0/0 Burn Absent Trauma Absent GI Symptoms None Difficulty In Swallowing,Chewing Current % PO Negligible Minimum of two criteria Yes Energy Intake (severe) < or equal to 50% Estimated Energy Requirement > or equal to 5 days Muscle Mass Moderate Depletion (severe) Protein-Calorie Malnutrition Non-Severe #1 Nutrition Diagnosis Inadequate oral intake Etiology dementia/poor po intake As Evidenced by Signs and Symptoms npo Diagnosis Progress(for reassessment Continues documentation) Is patient on ventilator? No Is Patient Ambulatory and/or Out of Bed No REE-([facility]-confined to bed) 1372.680 Kcal/Kg value to use for calculation 30 Approximate Energy Requirements Using 1964 kcal/Kg Calculation Used for Recommendations Kcal/kg Additional Notes PRO: .8-1.2 g/kg/BW 52-65 g/ day FLUID: 1mL/kcal Nutrition Intervention Change Diet Order: Clear liquid diet Add Supplement/Snack (indicate name/kcal ensure enlive tid /protein ) Provides kCal: 1,050 Provides Protein (gm) 60 Goal #1 po intake to exceed 80% of meal trays Goal #2 ONS tolerance Anticipated Discharge Needs: Will monitor Follow-Up By: 03/18/19 Additional Comments Monitor ONS/diet tolerance/ advancement - Malnutrition Assessment Minimum of two criteria: Yes - Attestation Statement I have reviewed and agreed w/ Malnutrition eval & tx plan: Yes
[2019-03-16 16:34] LABS: Bilirubin,Urine NEG (Negative); Blood,Urine LG (Negative); Color,Urine Amber (Yellow); Mucus,Urine 2+ /HPF
[2019-03-16 16:35] LABS: WBC,Urine > 182.0 /HPF (0.0-6.0)
[2019-03-16 18:08] LABS: Creatine Kinase MB 25.7 ng/mL (0.0-4.0)
[2019-03-16] MEDS: CEFEPIME/NS 2 GM/100 ML 2 GM/100 ML BAG IV SCH (22:42)
[2019-03-16] MEDS: HEPARIN 5,000 UNIT/1 ML VIAL SUB-Q SCH (22:43)
[2019-03-17 06:02] LABS: Hematocrit 37.3 % (30.3-42.9); Hemoglobin 12.1 gm/dl (10.1-14.3); Mean Corpuscular HGB Conc 32 % (30-34); Mean Corpuscular Volume 87 fl (79-97); Platelet Count 213 K/mm3 (140-440); Red Blood Count 4.31 M/mm3 (3.65-5.03); Red Cell Distribution Width 15.8 % (13.2-15.2)
[2019-03-17 06:19] LABS: BUN/Creatinine Ratio 49; Blood Urea Nitrogen 34 mg/dL (7-17); Hemolysis Index 3
[2019-03-17] MEDS: POTASSIUM CHLORIDE 20 MEQ PACKET PO SCH ×2 (09:21→22:22)
[2019-03-17] MEDS: CLOPIDOGREL 75 MG TAB PO SCH (09:21)
[2019-03-17] MEDS: METOPROLOL SUCCINATE XL 25 MG TAB PO SCH (09:21)
[2019-03-17] MEDS: LISINOPRIL 10 MG TAB PO SCH ×2 (09:22→22:21)
[2019-03-17] MEDS: HEPARIN 5,000 UNIT/1 ML VIAL SUB-Q SCH ×2 (09:22→22:31)
[2019-03-17] MEDS: LORATADINE (NF) 10 MG TAB PO SCH (09:22)
[2019-03-17] MEDS: FUROSEMIDE 40 MG TAB PO SCH (09:22)
[2019-03-17] MEDS: ASPIRIN EC 81 MG TAB PO SCH (09:22)
[2019-03-17] MEDS: NITROGLYCERIN 0.2 MG PATCH 24HR TD SCH (10:58)
--- NOTE | 2019-03-17 11:38 | Consultation ---
History of Present Illness Consult date: 03/17/19 Consult reason: atrial fibrillation History of present illness: Patient is a frail 73 year old woman with a history of Dementia and a history of coronary disease with remote 3v bypass grafting. She also has paroxysmal atrial fibrillation previously treated with eliquis for oral anticoagulation therapy. Her latest echocardiogram done early this year reports a left ventricular ejection fraction 40-45% and moderate mitral and moderate tricuspid regurgitation. Patient was brought to this hospital with reports of poor oral intake. An ECG done shows rapid atrial fibrillation. It is unclear if the patient is taking any medications at home. Cardiology consultation has been requested. Past History Past Medical History: other (see hpi) Past Surgical History: CABG Social history: . denies: smoking, alcohol abuse, prescription drug abuse Family history: diabetes, hypertension Medications and Allergies Allergies Allergy/AdvReac Type Severity Reaction Status Date / Time montelukast [From Singulair] Allergy Unknown Verified 07/29/18 09:49 Home Medications Medication Instructions Recorded Confirmed Last Taken Type Enalapril Maleate [Vasotec] 10 mg PO BID 07/29/18 03/15/19 Unknown History Furosemide [Lasix TAB] 40 mg PO QDAY 07/29/18 03/15/19 Unknown History Nitroglycerin [Nitro Dur] 0.2 mg TD QDAY 07/29/18 03/15/19 Unknown History LORazepam [Ativan] 0.5 mg PO Q4H PRN 03/15/19 03/15/19 Unknown History traMADol [Ultram 50 MG tab] 50 mg PO Q8H 03/15/19 03/15/19 Unknown History Active Meds: Active Medications Acetaminophen (Tylenol) 650 mg PO Q4H PRN PRN Reason: Pain MILD(1-3)/Fever >100.5/RUSH Last Admin: 03/16/19 08:14 Dose: 650 mg Documented by: Albuterol (Proventil) 2.5 mg IH Q4H PRN PRN Reason: Shortness Of Breath Aspirin (Halfprin Ec) 81 mg PO DAILY [facility] Last Admin: 03/17/19 09:22 Dose: 81 mg Documented by: Atorvastatin Calcium (Lipitor) 40 mg PO QHS [facility] Last Admin: 03/16/19 22:42 Dose: 40 mg Documented by: Clopidogrel Bisulfate (Plavix) 75 mg PO DAILY [facility] Last Admin: 03/17/19 09:21 Dose: 75 mg Documented by: Famotidine (Pepcid) 20 mg PO QHS [facility] Last Admin: 03/16/19 22:42 Dose: 20 mg Documented by: Furosemide (Lasix) 40 mg PO QDAY [facility] Last Admin: 03/17/19 09:22 Dose: 40 mg Documented by: Heparin Sodium (Porcine) (Heparin) 5,000 unit SUB-Q Q12HR [facility] Last Admin: 03/17/19 09:22 Dose: 5,000 unit Documented by: Vancomycin HCl (Vancomycin/Ns 1 Gm/250 Ml) 1 gm in 250 mls @ 166.667 mls/hr IV Q24H [facility] Last Admin: 03/16/19 13:39 Dose: 166.667 mls/hr Documented by: Cefepime HCl (Cefepime/Ns 2 Gm/100 Ml) 2 gm in 100 mls @ 200 mls/hr IV Q8HR [facility]; Protocol Last Admin: 03/16/19 22:42 Dose: 200 mls/hr Documented by: Ibuprofen (Ibuprofen) 200 mg PO Q6H PRN PRN Reason: Pain, Moderate (4-6) Lisinopril (Zestril) 10 mg PO BID [facility] Last Admin: 03/17/19 09:22 Dose: 10 mg Documented by: Loratadine (Claritin) 10 mg PO DAILY [facility] Last Admin: 03/17/19 09:22 Dose: 10 mg Documented by: Metoprolol Succinate (Metoprolol Xl) 25 mg PO QDAY [facility] Last Admin: 03/17/19 09:21 Dose: 25 mg Documented by: Nitroglycerin (Nitro Dur) 0.2 mg TD QDAY [facility] Last Admin: 03/17/19 10:58 Dose: Not Given Documented by: Ondansetron HCl (Zofran) 4 mg IV Q8H PRN PRN Reason: Nausea And Vomiting Potassium Chloride (Potassium Chloride) 20 meq PO Q12HR [facility] Last Admin: 03/17/19 09:21 Dose: 20 meq Documented by: Sodium Chloride (Sodium Chloride Flush Syringe 10 Ml) 10 ml IV BID [facility] Last Admin: 03/17/19 09:22 Dose: 10 ml Documented by: Sodium Chloride (Sodium Chloride Flush Syringe 10 Ml) 10 ml IV PRN PRN PRN Reason: LINE FLUSH Physical Examination Vital Signs Temp Pulse Resp BP Pulse Ox 97.8 F 119 H 20 112/79 100 03/15/19 10:04 03/15/19 10:04 03/15/19 10:04 03/15/19 10:04 03/15/19 10:04 General appearance: no acute distress, cachectic HEENT: Positive: PERRL Cardiac: Positive: irregularly irregular Lungs: Positive: Decreased Breath Sounds Results 03/17/19 05:43 03/17/19 05:43 Cardiac Enzymes 03/16/19 03/16/19 Range/Units 11:29 17:22 CK-MB (CK-2) 18.8 H 25.7 H (0.0-4.0) ng/mL CBC 03/17/19 Range/Units 05:43 WBC 17.5 H (4.5-11.0) K/mm3 RBC 4.31 (3.65-5.03) M/mm3 Hgb 12.1 (10.1-14.3) gm/dl Hct 37.3 (30.3-42.9) % Plt Count 213 (140-440) K/mm3 Comprehensive Metabolic Panel 03/17/19 Range/Units 05:43 Sodium 150 H (137-145) mmol/L Potassium 4.2 (3.6-5.0) mmol/L Chloride 115.3 H (98-107) mmol/L Carbon Dioxide 23 (22-30) mmol/L BUN 34 H (7-17) mg/dL Creatinine 0.7 (0.7-1.2) mg/dL Glucose 147 H (65-100) mg/dL Calcium 9.0 (8.4-10.2) mg/dL
--- NOTE | 2019-03-17 12:42 | Progress Note ---
Assessment and Plan Assessment and plan: Patient is a 73-year-old woman with a history of Advance dementia, Bedbound, HTN, Sacral Decubitus Ulcer, CAD s/p CABG, [place], DM type 2, Cardiomyopathy, CHF echocardiogram 6 months ago was reported at 40-45%, Afib, DVT not on therapeutic anticoagulation, PVD and who currently lives in a home hospice and is a DO NOT RESUSCITATE. Pt daughter notified hospice provider and revoked hospice benefit and request aggressive medical care. Patient was found to have Infected sacral decubitus ulcer and a mild elevation of the troponin level. On this presentation, EKG is atrial fibrillation with a heart rate in the 110s, multiple laboratory abnormalities including a WBC of 17,000, and sodium of 150 demonstrating marked dehydration and a possible underlying infection. The CPK level was 2864 with an MB fraction of only 25, more consistent with rhabdomyolysis. Chest x-ray reported no infiltrates and no edema. Severe Sepsis due to Acute on chronic Infected Chronic Sacral Ulcer: treat with Abx, ID is following Diabetes Mellitus type 2: SSI, ADA, ACCUCHECKs CHF, chronic combined heart failure; Cardiology consulted, input noted, Type 2 NJ secondary to sepsis- CABG Acute Metabolic Encephalopathy, poa Rhabdomyolysis: treat with IVF. serial CPK level Advance Care planning, DNR per chart DVT ppx: sq heparin History Interval history: Patient was seen and examined. Follow-up on current diagnosis of AMS. No overnight events reported to me. Patient denies any chest pain, shortness breath, nausea/vomiting or severe headaches. Imaging, nursing note, chart, labs and old chart reviewed. Discussed with patient. Hospitalist Physical - Physical exam Narrative exam: Gen: thin cachetic, NAD, Awake, Alert, confused HEENT: NCAT, EOMI, PERRL, OP Clear Neck: supple, no adenopathy, no thyromegaly, no JVD CVS/Heart: RRR, normal S1S2, pulses present bilaterally Chest/Lungs: CTA B, Symmetrical chest expansion, good air entry bilaterally GI/Abdomen: soft, NTND, good bowel sounds, no guarding or rebound /Bladder: no suprapubic tenderness, no CVA or paraspinal tenderness Extermity/Skin: no c/c/e, no obvious rash MSK: sFROM x 4 Neuro: CN 2-12 grossly intact, doesn't follow commands Psych: calm - Constitutional Vitals: Temp Pulse Resp BP Pulse Ox 97.6 F 100 H 18 114/58 98 03/17/19 03:56 03/17/19 10:58 03/17/19 08:03 03/17/19 10:58 03/17/19 08:37 General appearance: Present: no acute distress, cachectic Results - Labs CBC & Chem 7: 03/17/19 05:43 03/17/19 05:43 Labs: Laboratory Last Values WBC 17.5 K/mm3 (4.5-11.0) H 03/17/19 05:43 RBC 4.31 M/mm3 (3.65-5.03) 03/17/19 05:43 Hgb 12.1 gm/dl (10.1-14.3) 03/17/19 05:43 Hct 37.3 % (30.3-42.9) 03/17/19 05:43 MCV 87 fl (79-97) 03/17/19 05:43 MCH 28 pg (28-32) 03/17/19 05:43 MCHC 32 % (30-34) 03/17/19 05:43 RDW 15.8 % (13.2-15.2) H 03/17/19 05:43 Plt Count 213 K/mm3 (140-440) 03/17/19 05:43 Lymph % (Auto) 9.7 % (13.4-35.0) L 03/15/19 11:15 Republic % (Auto) 7.8 % (0.0-7.3) H 03/15/19 11:15 Eos % (Auto) 0.0 % (0.0-4.3) 03/15/19 11:15 Baso % (Auto) 0.4 % (0.0-1.8) 03/15/19 11:15 Lymph # 1.5 K/mm3 (1.2-5.4) 03/15/19 11:15 Republic # 1.2 K/mm3 (0.0-0.8) H 03/15/19 11:15 Eos # 0.0 K/mm3 (0.0-0.4) 03/15/19 11:15 Baso # 0.1 K/mm3 (0.0-0.1) 03/15/19 11:15 Seg Neutrophils % 82.1 % (40.0-70.0) H 03/15/19 11:15 Seg Neutrophils # 12.9 K/mm3 (1.8-7.7) H 03/15/19 11:15 PT 16.1 Sec. (12.2-14.9) H 03/15/19 11:15 INR 1.31 (0.87-1.13) H 03/15/19 11:15 APTT 25.4 Sec. (24.2-36.6) 03/15/19 11:15 Sodium 150 mmol/L (137-145) H 03/17/19 05:43 Potassium 4.2 mmol/L (3.6-5.0) 03/17/19 05:43 Chloride 115.3 mmol/L (98-107) H 03/17/19 05:43 Carbon Dioxide 23 mmol/L (22-30) 03/17/19 05:43 Anion Gap 16 mmol/L 03/17/19 05:43 BUN 34 mg/dL (7-17) H 03/17/19 05:43 Creatinine 0.7 mg/dL (0.7-1.2) 03/17/19 05:43 Estimated GFR > 60 ml/min 03/17/19 05:43 BUN/Creatinine Ratio 49 % 03/17/19 05:43 Glucose 147 mg/dL (65-100) H 03/17/19 05:43 POC Glucose 158 (70-105) H 03/16/19 16:28 Lactic Acid 1.70 mmol/L (0.7-2.0) 03/17/19 05:43 Calcium 9.0 mg/dL (8.4-10.2) 03/17/19 05:43 Magnesium 2.10 mg/dL (1.7-2.3) 03/15/19 11:15 Total Bilirubin 0.60 mg/dL (0.1-1.2) 03/15/19 11:15 AST 33 units/L (5-40) 03/15/19 11:15 ALT 18 units/L (7-56) 03/15/19 11:15 Alkaline Phosphatase 86 units/L (35-129) 03/15/19 11:15 Total Creatine Kinase 2213 units/L (30-135) H 03/17/19 05:43 CK-MB (CK-2) 25.7 ng/mL (0.0-4.0) H 03/16/19 17:22 CK-MB (CK-2) Rel Index 0.8 (0-4) 03/16/19 17:22 Troponin T 0.139 ng/mL (0.00-0.029) H* 03/16/19 17:22 NT-Pro-B Natriuret Pep 65259 pg/mL (0-900) H 03/15/19 11:15 Total Protein 7.5 g/dL (6.3-8.2) 03/15/19 11:15 Albumin 3.6 g/dL (3.9-5) L 03/15/19 11:15 Albumin/Globulin Ratio 0.9 % 03/15/19 11:15 Triglycerides 116 mg/dL (2-149) 03/15/19 11:15 Cholesterol 175 mg/dL (50-199) 03/15/19 11:15 LDL Cholesterol Direct 116 mg/dL (50-130) 03/15/19 11:15 HDL Cholesterol 39 mg/dL (40-59) L 03/15/19 11:15 Cholesterol/HDL Ratio 4.48 % 03/15/19 11:15 Urine Color Lorrie (Yellow) 03/16/19 16:00 Urine Turbidity Turbid (Clear) 03/16/19 16:00 Urine pH 5.0 (5.0-7.0) 03/16/19 16:00 Ur Specific Am[place]on 1.019 (1.003-1.030) 03/16/19 16:00 Urine Protein 30 mg/dl mg/dL (Negative) 03/16/19 16:00 Urine Glucose (UA) Neg mg/dL (Negative) 03/16/19 16:00 Urine Ketones Tr mg/dL (Negative) 03/16/19 16:00 Urine Blood Lg (Negative) 03/16/19 16:00 Urine Nitrite Neg (Negative) 03/16/19 16:00 Urine Bilirubin Neg (Negative) 03/16/19 16:00 Urine Urobilinogen 2.0 mg/dL (<2.0) 03/16/19 16:00 Ur Leukocyte Esterase Lg (Negative) 03/16/19 16:00 Urine WBC (Auto) > 182.0 /HPF (0.0-6.0) H 03/16/19 16:00 Urine RBC (Auto) 96.0 /HPF (0.0-6.0) 03/16/19 16:00 U Epithel Cells (Auto) 57.0 /HPF (0-13.0) H 03/16/19 16:00 Urine WBC Clumps 3+ /HPF 03/16/19 16:00 Urine Mucus 2+ /HPF 03/16/19 16:00 Active Medications - Current Medications Current Medications: Generic Name Dose Route Start Last Admin Trade Name Freq PRN Reason Stop Dose Admin Acetaminophen 650 mg 03/15/19 13:14 03/16/19 08:14 Tylenol PO 650 mg Q4H PRN Administration Pain MILD(1-3)/Fever >100.5/RUSH Albuterol 2.5 mg 03/15/19 13:10 Proventil IH Q4H PRN Shortness Of Breath Aspirin 81 mg 03/16/19 10:00 03/17/19 09:22 Halfprin Ec PO 81 mg DAILY [facility] Administration Atorvastatin Calcium 40 mg 03/15/19 22:00 03/16/19 22:42 Lipitor PO 40 mg QHS [facility] Administration Clopidogrel Bisulfate 75 mg 03/16/19 10:00 03/17/19 09:21 Plavix PO 75 mg DAILY [facility] Administration Famotidine 20 mg 03/15/19 22:00 03/16/19 22:42 Pepcid PO 20 mg QHS [facility] Administration Furosemide 40 mg 03/15/19 14:00 03/17/19 09:22 Lasix PO 40 mg QDAY [facility] Administration Heparin Sodium (Porcine) 5,000 unit 03/16/19 22:00 03/17/19 09:22 Heparin SUB-Q 5,000 unit Q12HR [facility] Administration Vancomycin HCl 1 gm in 250 mls @ 166.667 mls/hr 03/16/19 13:00 03/16/19 13:39 Vancomycin/Ns 1 Gm/250 Ml IV 166.667 mls/hr Q24H [facility] Administration Cefepime HCl 2 gm in 100 mls @ 200 mls/hr 03/16/19 17:00 03/16/19 22:42 Cefepime/Ns 2 Gm/100 Ml IV 200 mls/hr Q8HR [facility] Administration Protocol Ibuprofen 200 mg 03/15/19 13:14 Ibuprofen PO Q6H PRN Pain, Moderate (4-6) Lisinopril 10 mg 03/15/19 22:00 03/17/19 09:22 Zestril PO 10 mg BID [facility] Administration Loratadine 10 mg 03/15/19 14:00 03/17/19 09:22 Claritin PO 10 mg DAILY [facility] Administration Metoprolol Succinate 25 mg 03/15/19 14:00 03/17/19 09:21 Metoprolol Xl PO 25 mg QDAY [facility] Administration Nitroglycerin 0.2 mg 03/15/19 14:00 03/17/19 10:58 Nitro Dur TD Not Given QDAY [facility] Ondansetron HCl 4 mg 03/15/19 13:10 Zofran IV Q8H PRN Nausea And Vomiting Potassium Chloride 20 meq 03/16/19 11:30 03/17/19 09:21 Potassium Chloride PO 20 meq Q12HR [facility] Administration Sodium Chloride 10 ml 03/15/19 22:00 03/17/19 09:22 Sodium Chloride Flush Syringe 10 Ml IV 10 ml BID [facility] Administration Sodium Chloride 10 ml 03/15/19 13:10 Sodium Chloride Flush Syringe 10 Ml IV PRN PRN LINE FLUSH Nutrition/Malnutrition Assess - Dietary Evaluation Nutrition/Malnutrition Findings: Nutrition Notes Start: 03/16/19 14:08 Freq: Status: Active Protocol: Document 03/16/19 14:08 OH (Rec: 03/16/19 14:18 OH [id number]) Nutrition Notes Need for Assessment generated from: energy risk management analyst Initial or Follow up Assessment Current Diagnosis Sepsis,Hypertension Other Pertinent Diagnosis sacral decubitus Current Diet NPO Labs/Tests GLU 141 ALB 3.6 Pertinent Medications Reviewed Height 5 ft 3 in Weight 65.475 kg [place] Body Weight (kg) 52.27 BMI 25.5 Weight Status Appropriate Subjective/Other Information RN CONSULT; Pt. w/hx of difficulty chewing. Pt. screened for malnutrition. Pt. is awaiting a ST SCREEN. Pt. confused and unable to answer questions. Per RN medications required to be crushed. EDITED: ST completed and recommends clear liquid diet w /alternate nutrition source if clear liquid diet not tolerated/adequate Percent of energy/protein needs met: 0/0 Burn Absent Trauma Absent GI Symptoms None Difficulty In Swallowing,Chewing Current % PO Negligible Minimum of two criteria Yes Energy Intake (severe) < or equal to 50% Estimated Energy Requirement > or equal to 5 days Muscle Mass Moderate Depletion (severe) Protein-Calorie Malnutrition Non-Severe #1 Nutrition Diagnosis Inadequate oral intake Etiology dementia/poor po intake As Evidenced by Signs and Symptoms npo Diagnosis Progress(for reassessment Continues documentation) Is patient on ventilator? No Is Patient Ambulatory and/or Out of Bed No REE-([facility]-confined to bed) 1372.680 Kcal/Kg value to use for calculation 30 Approximate Energy Requirements Using 1964 kcal/Kg Calculation Used for Recommendations Kcal/kg Additional Notes PRO: .8-1.2 g/kg/BW 52-65 g/ day FLUID: 1mL/kcal Nutrition Intervention Change Diet Order: Clear liquid diet Add Supplement/Snack (indicate name/kcal ensure enlive tid /protein ) Provides kCal: 1,050 Provides Protein (gm) 60 Goal #1 po intake to exceed 80% of meal trays Goal #2 ONS tolerance Anticipated Discharge Needs: Will monitor Follow-Up By: 03/18/19 Additional Comments Monitor ONS/diet tolerance/ advancement
[2019-03-17] MEDS: VANCOMYCIN/NS 1 GM/250 ML 1 GM/250 ML BAG IV SCH (13:23)
[2019-03-17] MEDS ORDERED: METOPROLOL TARTRATE 5 MG/5 ML INJ IV PRN (13:53)
--- NOTE | 2019-03-17 15:19 | Progress Note ---
Assessment and Plan Cultures: 03/15/19 blood culture - NGTD 03/16/2019 wound culture - NGTD, no PMNs A/P: 73 yo F PMHx HTn, chronic sacral decub, CAD s/p CABG, DM2, DVT, PVD admitted with sepsis secondary to an infected chronic sacral decub. 1. Acute sepsis - present on admission with fevers, leukocytosis, tachycardia. Secondary to infected chronic sacral decub. 2. Infected chronic sacral decub - most likely gram positive etiology. i ordered wound cultures to be obtained by wound care. Would add cefepime for gram negative coverage at the present time. would not recommend treating for osteomyelitis course given overall prognosis and poor wound healing of the wound. Pending wound cultures will hopefully be able to have a pathogen directed antibiotic course for 2 weeks. 3. DM2 - tight glycemic control for improved wound healing. Recs: - continue vancomycin goal trough 15-20 with pharmacy dosing. - continue cefepime 2g q8h - Follow up cultures - follow up wound care Thank you for the consult, we will continue to follow. Lucila Caballero MD [facility] M: [phone] O: [phone] F: [phone] Subjective Date of service: 03/17/19 Interval history: No change Objective - Exam Narrative Exam: Constitutional: Minimally responsive, no acute distress Head, Ears, Nose: Normocephalic, atraumatic. External ears, nose normal Eyes: Conjunctivae/corneas clear. No icterus. No ptosis. Neck: Supple, no meningeal signs Oral: dentition fair, no thrush Cardiovascular: S1, S2 normal. Respiratory: Good air entry, clear to auscultation bilaterally GI: Soft, non-tender; bowel sounds normal. No peritoneal signs. Musculoskeletal: No pedal edema, no cyanosis. Sacral decub noted on images in chart Skin: No rash or abscess Hem/Lymphatic: No palpable cervical or supraclavicular nodes. No lymphangitis Neurological: Non-responsive. No gross abnormality - Constitutional Vitals: Vital Signs Temp Pulse Resp BP Pulse Ox 97.6 F 100 H 18 114/58 98 03/17/19 03:56 03/17/19 10:58 03/17/19 08:03 03/17/19 10:58 03/17/19 08:37 Temperature -Last 24 Hours Temperature 97.6 F Temperature 97.6 F Temperature 98.3 F Temperature 98.0 F - Labs CBC & Chem 7: 03/17/19 05:43 03/17/19 05:43 Labs: Abnormal lab results 03/16/19 03/16/19 03/16/19 Range/Units 14:48 16:00 16:28 WBC (4.5-11.0) K/mm3 RDW (13.2-15.2) % Sodium (137-145) mmol/L Chloride (98-107) mmol/L BUN (7-17) mg/dL Glucose (65-100) mg/dL POC Glucose 158 H (70-105) Lactic Acid 2.60 H* (0.7-2.0) mmol/L Total Creatine Kinase (30-135) units/L CK-MB (CK-2) (0.0-4.0) ng/mL Troponin T (0.00-0.029) ng/mL Urine WBC (Auto) > 182.0 H (0.0-6.0) /HPF U Epithel Cells (Auto) 57.0 H (0-13.0) /HPF 03/16/19 03/16/19 03/16/19 Range/Units 16:31 17:22 18:21 WBC (4.5-11.0) K/mm3 RDW (13.2-15.2) % Sodium (137-145) mmol/L Chloride (98-107) mmol/L BUN (7-17) mg/dL Glucose (65-100) mg/dL POC Glucose (70-105) Lactic Acid 2.80 H* 2.10 H* (0.7-2.0) mmol/L Total Creatine Kinase 2864 H (30-135) units/L CK-MB (CK-2) 25.7 H (0.0-4.0) ng/mL Troponin T 0.139 H* (0.00-0.029) ng/mL Urine WBC (Auto) (0.0-6.0) /HPF U Epithel Cells (Auto) (0-13.0) /HPF 03/16/19 03/17/19 03/17/19 Range/Units 20:30 05:43 05:43 WBC 17.5 H (4.5-11.0) K/mm3 RDW 15.8 H (13.2-15.2) % Sodium 150 H (137-145) mmol/L Chloride 115.3 H (98-107) mmol/L BUN 34 H (7-17) mg/dL Glucose 147 H (65-100) mg/dL POC Glucose (70-105) Lactic Acid 2.70 H* (0.7-2.0) mmol/L Total Creatine Kinase 2213 H (30-135) units/L CK-MB (CK-2) (0.0-4.0) ng/mL Troponin T (0.00-0.029) ng/mL Urine WBC (Auto) (0.0-6.0) /HPF U Epithel Cells (Auto) (0-13.0) /HPF
[2019-03-17] MEDS: CEFEPIME/NS 2 GM/100 ML 2 GM/100 ML BAG IV SCH ×4 (16:24→22:29)
[2019-03-17] MEDS: FAMOTIDINE 20 MG TAB PO SCH (22:22)
[2019-03-18] MEDS: CEFEPIME/NS 2 GM/100 ML 2 GM/100 ML BAG IV SCH ×2 (05:32→14:59)
--- NOTE | 2019-03-18 10:02 | Progress Note ---
Assessment and Plan Assessment and plan: Patient is a 73-year-old woman with a history of Advance dementia, Bedbound, HTN, Sacral Decubitus Ulcer, CAD s/p CABG, RI, DM type 2, Cardiomyopathy, CHF echocardiogram 6 months ago was reported at 40-45%, Afib, DVT not on therapeutic anticoagulation, PVD and who currently lives in a home hospice and is a DO NOT RESUSCITATE. Pt daughter notified hospice provider and revoked hospice benefit and request aggressive medical care. Patient was found to have Infected sacral decubitus ulcer and a mild elevation of the troponin level. On this presentation, EKG is atrial fibrillation with a heart rate in the 110s, multiple laboratory abnormalities including a WBC of 17,000, and sodium of 150 demonstrating marked dehydration and a possible underlying infection. The CPK level was 2864 with an MB fraction of only 25, more consistent with rhabdomyolysis. Chest x-ray reported no infiltrates and no edema. Severe Sepsis due to Acute on chronic Infected Chronic Sacral Ulcer: treat with Abx, ID is following Necrotic sacral ulcer: consulted Gen. Surgery Diabetes Mellitus type 2: SSI, ADA, ACCUCHECKs CHF, chronic combined heart failure; Cardiology consulted, input noted, Type 2 RI secondary to sepsis- CABG Acute Metabolic Encephalopathy, poa Rhabdomyolysis: treat with IVF. serial CPK level Advance Care planning, DNR per chart DVT ppx: sq heparin History Interval history: Patient was seen and examined. Follow-up on current diagnosis of AMS. No overnight events reported to me. Imaging, nursing note, chart, labs and old chart reviewed. Discussed with patient. Hospitalist Physical - Physical exam Narrative exam: Gen: thin cachetic, NAD, Awake, Alert, confused HEENT: NCAT, EOMI, PERRL, OP Clear Neck: supple, no adenopathy, no thyromegaly, no JVD CVS/Heart: RRR, normal S1S2, pulses present bilaterally Chest/Lungs: CTA B, Symmetrical chest expansion, good air entry bilaterally GI/Abdomen: soft, NTND, good bowel sounds, no guarding or rebound /Bladder: no suprapubic tenderness, no CVA or paraspinal tenderness Extermity/Skin: no c/c/e, no obvious rash MSK: sFROM x 4 Neuro: CN 2-12 grossly intact, doesn't follow commands Psych: calm - Constitutional Vitals: Temp Pulse Resp BP Pulse Ox 97.4 F L 101 H 18 113/72 99 03/18/19 04:16 03/18/19 04:16 03/18/19 04:16 03/18/19 04:16 03/18/19 08:56 General appearance: Present: no acute distress, cachectic Results - Labs CBC & Chem 7: 03/17/19 05:43 03/17/19 05:43 Labs: Laboratory Last Values WBC 17.5 K/mm3 (4.5-11.0) H 03/17/19 05:43 RBC 4.31 M/mm3 (3.65-5.03) 03/17/19 05:43 Hgb 12.1 gm/dl (10.1-14.3) 03/17/19 05:43 Hct 37.3 % (30.3-42.9) 03/17/19 05:43 MCV 87 fl (79-97) 03/17/19 05:43 MCH 28 pg (28-32) 03/17/19 05:43 MCHC 32 % (30-34) 03/17/19 05:43 RDW 15.8 % (13.2-15.2) H 03/17/19 05:43 Plt Count 213 K/mm3 (140-440) 03/17/19 05:43 Lymph % (Auto) 9.7 % (13.4-35.0) L 03/15/19 11:15 [place] % (Auto) 7.8 % (0.0-7.3) H 03/15/19 11:15 Eos % (Auto) 0.0 % (0.0-4.3) 03/15/19 11:15 Baso % (Auto) 0.4 % (0.0-1.8) 03/15/19 11:15 Lymph # 1.5 K/mm3 (1.2-5.4) 03/15/19 11:15 [place] # 1.2 K/mm3 (0.0-0.8) H 03/15/19 11:15 Eos # 0.0 K/mm3 (0.0-0.4) 03/15/19 11:15 Baso # 0.1 K/mm3 (0.0-0.1) 03/15/19 11:15 Seg Neutrophils % 82.1 % (40.0-70.0) H 03/15/19 11:15 Seg Neutrophils # 12.9 K/mm3 (1.8-7.7) H 03/15/19 11:15 PT 16.1 Sec. (12.2-14.9) H 03/15/19 11:15 INR 1.31 (0.87-1.13) H 03/15/19 11:15 APTT 25.4 Sec. (24.2-36.6) 03/15/19 11:15 Sodium 150 mmol/L (137-145) H 03/17/19 05:43 Potassium 4.2 mmol/L (3.6-5.0) 03/17/19 05:43 Chloride 115.3 mmol/L (98-107) H 03/17/19 05:43 Carbon Dioxide 23 mmol/L (22-30) 03/17/19 05:43 Anion Gap 16 mmol/L 03/17/19 05:43 BUN 34 mg/dL (7-17) H 03/17/19 05:43 Creatinine 0.7 mg/dL (0.7-1.2) 03/17/19 05:43 Estimated GFR > 60 ml/min 03/17/19 05:43 BUN/Creatinine Ratio 49 % 03/17/19 05:43 Glucose 147 mg/dL (65-100) H 03/17/19 05:43 POC Glucose 158 (70-105) H 03/16/19 16:28 Lactic Acid 1.70 mmol/L (0.7-2.0) 03/17/19 14:32 Calcium 9.0 mg/dL (8.4-10.2) 03/17/19 05:43 Magnesium 2.10 mg/dL (1.7-2.3) 03/15/19 11:15 Total Bilirubin 0.60 mg/dL (0.1-1.2) 03/15/19 11:15 AST 33 units/L (5-40) 03/15/19 11:15 ALT 18 units/L (7-56) 03/15/19 11:15 Alkaline Phosphatase 86 units/L (35-129) 03/15/19 11:15 Total Creatine Kinase 2213 units/L (30-135) H 03/17/19 05:43 CK-MB (CK-2) 25.7 ng/mL (0.0-4.0) H 03/16/19 17:22 CK-MB (CK-2) Rel Index 0.8 (0-4) 03/16/19 17:22 Troponin T 0.139 ng/mL (0.00-0.029) H* 03/16/19 17:22 NT-Pro-B Natriuret Pep 45438 pg/mL (0-900) H 03/15/19 11:15 Total Protein 7.5 g/dL (6.3-8.2) 03/15/19 11:15 Albumin 3.6 g/dL (3.9-5) L 03/15/19 11:15 Albumin/Globulin Ratio 0.9 % 03/15/19 11:15 Triglycerides 116 mg/dL (2-149) 03/15/19 11:15 Cholesterol 175 mg/dL (50-199) 03/15/19 11:15 LDL Cholesterol Direct 116 mg/dL (50-130) 03/15/19 11:15 HDL Cholesterol 39 mg/dL (40-59) L 03/15/19 11:15 Cholesterol/HDL Ratio 4.48 % 03/15/19 11:15 Urine Color [place] (Yellow) 03/16/19 16:00 Urine Turbidity Turbid (Clear) 03/16/19 16:00 Urine pH 5.0 (5.0-7.0) 03/16/19 16:00 Ur Specific [place] 1.019 (1.003-1.030) 03/16/19 16:00 Urine Protein 30 mg/dl mg/dL (Negative) 03/16/19 16:00 Urine Glucose (UA) Neg mg/dL (Negative) 03/16/19 16:00 Urine Ketones Tr mg/dL (Negative) 03/16/19 16:00 Urine Blood Lg (Negative) 03/16/19 16:00 Urine Nitrite Neg (Negative) 03/16/19 16:00 Urine Bilirubin Neg (Negative) 03/16/19 16:00 Urine Urobilinogen 2.0 mg/dL (<2.0) 03/16/19 16:00 Ur Leukocyte Esterase Lg (Negative) 03/16/19 16:00 Urine WBC (Auto) > 182.0 /HPF (0.0-6.0) H 03/16/19 16:00 Urine RBC (Auto) 96.0 /HPF (0.0-6.0) 03/16/19 16:00 U Epithel Cells (Auto) 57.0 /HPF (0-13.0) H 03/16/19 16:00 Urine WBC Clumps 3+ /HPF 03/16/19 16:00 Urine Mucus 2+ /HPF 03/16/19 16:00 Active Medications - Current Medications Current Medications: Generic Name Dose Route Start Last Admin Trade Name Freq PRN Reason Stop Dose Admin Acetaminophen 650 mg 03/15/19 13:14 03/16/19 08:14 Tylenol PO 650 mg Q4H PRN Administration Pain MILD(1-3)/Fever >100.5/RUSH Albuterol 2.5 mg 03/15/19 13:10 Proventil IH Q4H PRN Shortness Of Breath Aspirin 81 mg 03/16/19 10:00 03/17/19 09:22 Halfprin Ec PO 81 mg DAILY KURT Administration Atorvastatin Calcium 40 mg 03/15/19 22:00 03/17/19 22:30 Lipitor PO 40 mg QHS KURT Administration Clopidogrel Bisulfate 75 mg 03/16/19 10:00 03/17/19 09:21 Plavix PO 75 mg DAILY KURT Administration Famotidine 20 mg 03/15/19 22:00 03/17/19 22:22 Pepcid PO 20 mg QHS KURT Administration Furosemide 40 mg 03/15/19 14:00 03/17/19 09:22 Lasix PO 40 mg QDAY KURT Administration Heparin Sodium (Porcine) 5,000 unit 03/16/19 22:00 03/17/19 22:31 Heparin SUB-Q 5,000 unit Q12HR KURT Administration Vancomycin HCl 1 gm in 250 mls @ 166.667 mls/hr 03/16/19 13:00 03/17/19 13:23 Vancomycin/Ns 1 Gm/250 Ml IV 166.667 mls/hr Q24H KURT Administration Cefepime HCl 2 gm in 100 mls @ 200 mls/hr 03/16/19 17:00 03/18/19 05:32 Cefepime/Ns 2 Gm/100 Ml IV 200 mls/hr Q8HR KURT Administration Protocol Lisinopril 10 mg 03/15/19 22:00 03/17/19 22:21 Zestril PO 10 mg BID KURT Administration Loratadine 10 mg 03/15/19 14:00 03/17/19 09:22 Claritin PO 10 mg DAILY KURT Administration Metoprolol Succinate 25 mg 03/15/19 14:00 03/17/19 09:21 Metoprolol Xl PO 25 mg QDAY KURT Administration Metoprolol Tartrate 2.5 mg 03/17/19 13:53 Metoprolol IV Q4HR PRN HR >120 Nitroglycerin 0.2 mg 03/15/19 14:00 03/17/19 10:58 Nitro Dur TD Not Given QDAY KURT Ondansetron HCl 4 mg 03/15/19 13:10 Zofran IV Q8H PRN Nausea And Vomiting Potassium Chloride 20 meq 03/16/19 11:30 03/17/19 22:22 Potassium Chloride PO 20 meq Q12HR KURT Administration Sodium Chloride 10 ml 03/15/19 22:00 03/17/19 22:45 Sodium Chloride Flush Syringe 10 Ml IV 10 ml BID KURT Administration Sodium Chloride 10 ml 03/15/19 13:10 Sodium Chloride Flush Syringe 10 Ml IV PRN PRN LINE FLUSH Nutrition/Malnutrition Assess - Dietary Evaluation Nutrition/Malnutrition Findings: Nutrition Notes Start: 03/16/19 14:08 Freq: Status: Active Protocol: Document 03/16/19 14:08 OH (Rec: 03/16/19 14:18 OH [id number]) Nutrition Notes 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 w/hx of difficulty chewing. Pt. screened for malnutrition. Pt. is awaiting a ST SCREEN. Pt. confused and unable to answer questions. Per RN medications required to be crushed. EDITED: ST completed and recommends clear liquid diet w /alternate nutrition source if clear liquid diet not tolerated/adequate Percent of energy/protein needs met: 0/0 Burn Absent Trauma Absent GI Symptoms None Difficulty In Swallowing,Chewing Current % PO Negligible Minimum of two criteria Yes Energy Intake (severe) < or equal to 50% Estimated Energy Requirement > or equal to 5 days Muscle Mass Moderate Depletion (severe) Protein-Calorie Malnutrition Non-Severe #1 Nutrition Diagnosis Inadequate oral intake Etiology dementia/poor po intake As Evidenced by Signs and Symptoms npo Diagnosis Progress(for reassessment Continues documentation) Is patient on ventilator? No Is Patient Ambulatory and/or Out of Bed No REE-([facility]-confined to bed) 1372.680 Kcal/Kg value to use for calculation 30 Approximate Energy Requirements Using 1964 kcal/Kg Calculation Used for Recommendations Kcal/kg Additional Notes PRO: .8-1.2 g/kg/BW 52-65 g/ day FLUID: 1mL/kcal Nutrition Intervention Change Diet Order: Clear liquid diet Add Supplement/Snack (indicate name/kcal ensure enlive tid /protein ) Provides kCal: 1,050 Provides Protein (gm) 60 Goal #1 po intake to exceed 80% of meal trays Goal #2 ONS tolerance Anticipated Discharge Needs: Will monitor Follow-Up By: 03/18/19 Additional Comments Monitor ONS/diet tolerance/ advancement
--- NOTE | 2019-03-18 10:42 | Progress Note ---
Assessment and Plan Dehydration Dementia DO NOT RESUSCITATE Rhabdomyolysis Mild elevation of troponin level, nonspecific Hx of a mild cardiomyopathy Persistent atrial fibrillation previously considered to be a poor risk for continued oral anticoagulation. Recommendations: Continue rate controlling agent with low-dose Lopressor for atrial fibrillation rate control. Otherwise, conservative cardiac management. Subjective Date of service: 03/18/19 Interval history: Patient is alert with confusion; resting in bed comfortably. Objective Vital Signs Temp Pulse Resp BP BP Pulse Ox 03/18/19 08:56 99 03/18/19 04:16 97.4 F L 101 H 18 113/72 99 03/18/19 00:00 98.3 F 109 H 16 93/45 97 03/17/19 23:55 98.3 F 96 H 16 88/43 97 03/17/19 22:00 109 H 03/17/19 19:46 98.2 F 63 16 112/81 94 03/17/19 16:27 77 151/50 97 03/17/19 13:04 98.4 F 18 85/55 03/17/19 10:58 100 H 114/58 - Physical Examination General: No Apparent Distress HEENT: Positive: PERRL Neck: Positive: trachea midline Cardiac: Positive: irregularly irregular Lungs: Positive: Decreased Breath Sounds Extremities: Absent: edema
[2019-03-18] MEDS: POTASSIUM CHLORIDE 20 MEQ PACKET PO SCH ×2 (10:57→21:28)
[2019-03-18] MEDS: CLOPIDOGREL 75 MG TAB PO SCH (10:57)
[2019-03-18] MEDS: FUROSEMIDE 40 MG TAB PO SCH (10:58)
[2019-03-18] MEDS: ASPIRIN EC 81 MG TAB PO SCH (10:58)
[2019-03-18] MEDS: LORATADINE (NF) 10 MG TAB PO SCH (10:58)
[2019-03-18] MEDS: LISINOPRIL 10 MG TAB PO SCH ×2 (11:01→21:27)
[2019-03-18] MEDS: METOPROLOL SUCCINATE XL 25 MG TAB PO SCH (11:01)
[2019-03-18] MEDS: NITROGLYCERIN 0.2 MG PATCH 24HR TD SCH (11:02)
[2019-03-18] MEDS: HEPARIN 5,000 UNIT/1 ML VIAL SUB-Q SCH ×2 (11:03→21:27)
[2019-03-18] MEDS: VANCOMYCIN/NS 1 GM/250 ML 1 GM/250 ML BAG IV SCH (13:32)
--- NOTE | 2019-03-18 13:42 | Consultation ---
History of Present Illness Consult date: 03/18/19 Reason for consult: wound care Requesting physician: PRABHAKAR NOLASCO Chief complaint: chronic wounds - History of present illness History of present illness: 73yo F with htn, chronic sacral decub, CAD s/p CABG, DM2, DVT, PVD who was previously on hospice presents due to poor Po intake at home. We are asked to see her for her chronic decubitus wounds. Patient unable to give any history. Information obtained from staff and chart. Patient reports that she has pain but is unable to say exactly where and when it occurs. Past History Past Medical History: other (see hpi) Past Surgical History: CABG Social history: . denies: smoking, alcohol abuse, prescription drug abuse Family history: diabetes, hypertension Medications and Allergies Allergies Allergy/AdvReac Type Severity Reaction Status Date / Time montelukast [From Singulair] Allergy Unknown Verified 07/29/18 09:49 Home Medications Medication Instructions Recorded Confirmed Last Taken Type Enalapril Maleate [Vasotec] 10 mg PO BID 07/29/18 03/15/19 Unknown History Furosemide [Lasix TAB] 40 mg PO QDAY 07/29/18 03/15/19 Unknown History Nitroglycerin [Nitro Dur] 0.2 mg TD QDAY 07/29/18 03/15/19 Unknown History LORazepam [Ativan] 0.5 mg PO Q4H PRN 03/15/19 03/15/19 Unknown History traMADol [Ultram 50 MG tab] 50 mg PO Q8H 03/15/19 03/15/19 Unknown History Active Meds: Active Medications Acetaminophen (Tylenol) 650 mg PO Q4H PRN PRN Reason: Pain MILD(1-3)/Fever >100.5/RUSH Last Admin: 03/16/19 08:14 Dose: 650 mg Documented by: Albuterol (Proventil) 2.5 mg IH Q4H PRN PRN Reason: Shortness Of Breath Aspirin (Halfprin Ec) 81 mg PO DAILY [facility] Last Admin: 03/18/19 10:58 Dose: 81 mg Documented by: Atorvastatin Calcium (Lipitor) 40 mg PO QHS [facility] Last Admin: 03/17/19 22:30 Dose: 40 mg Documented by: Clopidogrel Bisulfate (Plavix) 75 mg PO DAILY [facility] Last Admin: 03/18/19 10:57 Dose: 75 mg Documented by: Famotidine (Pepcid) 20 mg PO QHS [facility] Last Admin: 03/17/19 22:22 Dose: 20 mg Documented by: Furosemide (Lasix) 40 mg PO QDAY [facility] Last Admin: 03/18/19 10:58 Dose: 40 mg Documented by: Heparin Sodium (Porcine) (Heparin) 5,000 unit SUB-Q Q12HR [facility] Last Admin: 03/18/19 11:03 Dose: 5,000 unit Documented by: Vancomycin HCl (Vancomycin/Ns 1 Gm/250 Ml) 1 gm in 250 mls @ 166.667 mls/hr IV Q24H [facility] Last Admin: 03/18/19 13:32 Dose: 166.667 mls/hr Documented by: Cefepime HCl (Cefepime/Ns 2 Gm/100 Ml) 2 gm in 100 mls @ 200 mls/hr IV Q8HR [facility]; Protocol Last Admin: 03/18/19 05:32 Dose: 200 mls/hr Documented by: Lisinopril (Zestril) 10 mg PO BID [facility] Last Admin: 03/18/19 11:01 Dose: 10 mg Documented by: Loratadine (Claritin) 10 mg PO DAILY [facility] Last Admin: 03/18/19 10:58 Dose: 10 mg Documented by: Metoprolol Succinate (Metoprolol Xl) 25 mg PO QDAY [facility] Last Admin: 03/18/19 11:01 Dose: 25 mg Documented by: Metoprolol Tartrate (Metoprolol) 2.5 mg IV Q4HR PRN PRN Reason: HR >120 Nitroglycerin (Nitro Dur) 0.2 mg TD QDAY [facility] Last Admin: 03/18/19 11:02 Dose: Not Given Documented by: Ondansetron HCl (Zofran) 4 mg IV Q8H PRN PRN Reason: Nausea And Vomiting Potassium Chloride (Potassium Chloride) 20 meq PO Q12HR [facility] Last Admin: 03/18/19 10:57 Dose: 20 meq Documented by: Sodium Chloride (Sodium Chloride Flush Syringe 10 Ml) 10 ml IV BID [facility] Last Admin: 03/18/19 11:02 Dose: 10 ml Documented by: Sodium Chloride (Sodium Chloride Flush Syringe 10 Ml) 10 ml IV PRN PRN PRN Reason: LINE FLUSH Review of Systems ROS unobtainable: due to mental status Exam Vital Signs Temp Pulse Resp BP Pulse Ox 97.8 F 119 H 20 112/79 100 03/15/19 10:04 03/15/19 10:04 03/15/19 10:04 03/15/19 10:04 03/15/19 10:04 - General physical appearance Positive: no distress, no pain, other (unable to fully communicate. Appears sad and fearful. Any movement causes pain) - Respiratory Positive: normal expansion, normal respiratory effort - Integumentary other (dry eschar noted sacrum and right buttock. No active purulent drainage. No erythema. No significant induration. Chux was covered in urine) Results - Labs 03/17/19 05:43 03/17/19 05:43 Assessment and Plan - Patient Problems (1) Decubitus skin ulcer Current Visit: Yes Status: Chronic Qualifiers: Pressure injury location: sacral region Pressure injury stage: unstageable Qualified Code(s): L89.150 - Pressure ulcer of sacral region, unstageable Plan to address problem: Pt stable. Patient has chronic wounds that most likely will not heal given her overall condition. I think to be surgically aggressive is futile. We will only cause her more pain and still have wounds that won't heal. I agree with wound care nurse to use hydrocolloid dressing to help clean up the wounds. The main thing the patient needs is regular turning to offload the area of the pressure ulcers. As for the leukocytosis, part of that may be hemoconcentration as patient appears very dehydrated based on clinical exam and labs. Would resuscitate patient and then recheck labs. She has not having fevers at this time. We will follow peripherally. Please call with any questions. Time=30min
--- NOTE | 2019-03-18 16:59 | Progress Note ---
Assessment and Plan Cultures: 03/15/19 blood culture - NGTD 03/16/2019 wound culture - NGTD, no PMNs A/P: 73 yo F PMHx HTn, chronic sacral decub, CAD s/p CABG, DM2, DVT, PVD admitted with sepsis secondary to an infected chronic sacral decub. 1. Acute sepsis - present on admission with fevers, leukocytosis, tachycardia. Secondary to infected chronic sacral decub. 2. Infected chronic sacral decub - most likely gram positive etiology. i ordered wound cultures to be obtained by wound care. Would add cefepime for gram negative coverage at the present time. would not recommend treating for osteomyelitis course given overall prognosis and poor wound healing of the wound. Pending wound cultures will hopefully be able to have a pathogen directed antibiotic course for 2 weeks. 3. DM2 - tight glycemic control for improved wound healing. Recs: - continue vancomycin goal trough 15-20 with pharmacy dosing. - stop cefepime 2g q8h as no gram negative seen on gram stain - Follow up cultures - if MRSA culture negative, will de-escalate therapy - anticipate completion of a 2 week course of antibiotics with PO on discharge pending culture finalization - Keflex if MRSA negative, Bactrim if positive. - follow up wound care Thank you for the consult, we will continue to follow. Lucila Caballero MD [facility] M: [phone] O: [phone] F: [phone] Subjective Date of service: 03/18/19 Interval history: No change, cultures negative thus far Objective - Exam Narrative Exam: Constitutional: Minimally responsive, no acute distress Head, Ears, Nose: Normocephalic, atraumatic. External ears, nose normal Eyes: Conjunctivae/corneas clear. No icterus. No ptosis. Neck: Supple, no meningeal signs Oral: dentition fair, no thrush Cardiovascular: S1, S2 normal. Respiratory: Good air entry, clear to auscultation bilaterally GI: Soft, non-tender; bowel sounds normal. No peritoneal signs. Musculoskeletal: No pedal edema, no cyanosis. Sacral decub noted on images in chart Skin: No rash or abscess Hem/Lymphatic: No palpable cervical or supraclavicular nodes. No lymphangitis Neurological: Non-responsive. No gross abnormality - Constitutional Vitals: Vital Signs Temp Pulse Resp BP Pulse Ox 97.4 F L 86 18 119/59 99 03/18/19 04:16 03/18/19 11:01 03/18/19 04:16 03/18/19 11:01 03/18/19 08:56 Temperature -Last 24 Hours Temperature 97.4 F Temperature 98.3 F Temperature 98.3 F Temperature 98.2 F - Labs CBC & Chem 7: 03/17/19 05:43 03/17/19 05:43
[2019-03-18] MEDS: FAMOTIDINE 20 MG TAB PO SCH (21:27)
[2019-03-19 06:14] LABS: Basophils % (Auto) 0.2 % (0.0-1.8); Eosinophils % (Auto) 0.1 % (0.0-4.3); Hematocrit 40.9 % (30.3-42.9); Hemoglobin 13.2 gm/dl (10.1-14.3); Lymphocytes # (Auto) 1.6 K/mm3 (1.2-5.4); Lymphocytes % (Auto) 9.1 % (13.4-35.0); Mean Corpuscular HGB Conc 32 % (30-34); Mean Corpuscular Volume 89 fl (79-97); Monocytes # (Auto) 1.1 K/mm3 (0.0-0.8); Monocytes % (Auto) 6.3 % (0.0-7.3); Platelet Count 179 K/mm3 (140-440); Red Blood Count 4.62 M/mm3 (3.65-5.03); Red Cell Distribution Width 16.3 % (13.2-15.2)
[2019-03-19] MEDS: NITROGLYCERIN 0.2 MG PATCH 24HR TD SCH (09:16)
[2019-03-19] MEDS: ASPIRIN EC 81 MG TAB PO SCH (09:40)
[2019-03-19] MEDS: METOPROLOL SUCCINATE XL 25 MG TAB PO SCH (09:40)
[2019-03-19] MEDS: CLOPIDOGREL 75 MG TAB PO SCH (09:40)
[2019-03-19] MEDS: FUROSEMIDE 40 MG TAB PO SCH (09:40)
[2019-03-19] MEDS: POTASSIUM CHLORIDE 20 MEQ PACKET PO SCH (09:40)
[2019-03-19] MEDS: LORATADINE (NF) 10 MG TAB PO SCH (09:40)
[2019-03-19] MEDS: HEPARIN 5,000 UNIT/1 ML VIAL SUB-Q SCH (09:42)
[2019-03-19] MEDS: LISINOPRIL 10 MG TAB PO SCH (09:45)
--- NOTE | 2019-03-19 11:31 | Discharge Summary ---
Providers - Providers Date of Admission: 03/15/19 13:10 Date of discharge: 03/19/19 Attending physician: PRABHAKAR NOLASCO 03/15/19 15:18 Consult to Wound/ET Nurse [CONS] Routine Reason For Exam: wound eval 03/16/19 08:31 Physical Therapy Evaluation and Treat [CONS] Routine Comment: Reason For Exam: weakness 03/16/19 08:46 Consult to Physician [CONS] Routine Comment: Consulting Provider: TALAT RAMOS Physician Instructions: Reason For Exam: sepsis, secondary to decub ulcer 03/16/19 08:47 Speech Therapy Evaluation and Treat [CONS] Routine Reason For Exam: swallow eval 03/16/19 10:22 Consult to Dietitian/Nutrition [CONS] Routine Physician Instructions: Reason For Exam: Decubitus Ulcers Reason for Consult: Pt needs oral supplement 03/16/19 15:20 Consult to Physician [CONS] Routine Comment: Consulting Provider: ANNABELLE SIU Physician Instructions: Reason For Exam: nstemi 03/18/19 09:55 Consult to Physician [CONS] Routine Comment: Consulting Provider: CAROLYN VILLALOBOS Physician Instructions: Reason For Exam: necrotic sacral ulcer [facility] Condition: Poor Hospital course: Patient is a 73-year-old woman with a history of Advance dementia, Bedbound, HTN, Sacral Decubitus Ulcer, CAD s/p CABG, NE, DM type 2, Cardiomyopathy, CHF echocardiogram 6 months ago was reported at 40-45%, Afib, DVT not on therapeutic anticoagulation, PVD and who currently lives in a home hospice and is a DO NOT RESUSCITATE. Pt daughter notified hospice provider and revoked hospice benefit and request aggressive medical care. Patient was found to have Infected sacral decubitus ulcer and a mild elevation of the troponin level. On this presentation, EKG is atrial fibrillation with a heart rate in the 110s, multiple laboratory abnormalities including a WBC of 17,000, and sodium of 150 demonstrating marked dehydration and a possible underlying infection. The CPK level was 2864 with an MB fraction of only 25, more consistent with rhabdomyolysis. Chest x-ray reported no infiltrates and no edema. Discharge Diagnoses: Severe Sepsis due to Acute on chronic Infected Chronic Sacral Ulcer: treat with Abx, ID is following, input noted Necrotic sacral ulcer: consulted Gen. Surgery, input noted Advance Dementia with FTT, dehydration, pt never wanted feeding tube per Daughter; therefore, she was in home hospice Diabetes Mellitus type 2: SSI, ADA, ACCUCHECKs CHF, chronic combined heart failure; Cardiology consulted, input noted, Type 2 NE secondary to sepsis- CABG Acute Metabolic Encephalopathy, poa Functional quadriplegia, poa Rhabdomyolysis: treat with IVF. serial CPK level Advance Care planning, DNR per daughter Christine whom i spoke with DVT ppx: sq heparin d/c to home Hospice (changed Hospice service per daughter Christine) Disposition: DC-50 TO HOSPICE (HOME) Time spent for discharge: 34 minutes Core Measure Documentation - Palliative Care Palliative Care/ Comfort Measures: Hospice Care - Core Measures Any of the following diagnoses?: none - VTE Discharge Requirements Deep Vein Thrombosis/Pulmonary Embolism Present on Admission: No Has pt received <5 days of overlap therapy or INR<2.0: No Anticoagulant overlap therapy prescribed at discharge: No Contraindication No Overlap Therapy order at DC: Not Indicated Exam - Physical Exam Narrative exam: Gen: thin cachetic, NAD, Awake, Alert, confused HEENT: NCAT, EOMI, PERRL, OP Clear Neck: supple, no adenopathy, no thyromegaly, no JVD CVS/Heart: RRR, normal S1S2, pulses present bilaterally Chest/Lungs: CTA B, Symmetrical chest expansion, good air entry bilaterally GI/Abdomen: soft, NTND, good bowel sounds, no guarding or rebound /Bladder: no suprapubic tenderness, no CVA or paraspinal tenderness Extermity/Skin: no obvious rash MSK: sFROM x 4 Neuro: CN 2-12 grossly intact, doesn't follow commands Psych: calm - Constitutional Vitals: Temp Pulse Resp BP Pulse Ox 98.5 F 63 18 121/58 93 03/19/19 08:08 03/19/19 08:10 03/19/19 08:08 03/19/19 08:10 03/19/19 08:10 Plan Activity: up only with assistance, fall precautions, other (no strenous activity, frequent 2 hours turn off buttock) Diet: advance as tolerated Follow up with: ASHKAN SINHA MD [Primary Care Provider] - 7 Days CAROLYN VILLALOBOS MD [Staff Physician] - 7 Days ANNABELLE SIU MD [Staff Physician] - 7 Days Prescriptions: cephALEXin [Keflex] 500 mg PO BID #20 cap
--- NOTE | 2019-03-19 11:54 | Progress Note ---
Assessment and Plan Dehydration Dementia DO NOT RESUSCITATE Rhabdomyolysis Mild elevation of troponin level, nonspecific Hx of a mild cardiomyopathy Persistent atrial fibrillation, rate control previously considered to be a poor risk for continued oral anticoagulation. Recommendations: Continue rate controlling agent with low-dose Lopressor for atrial fibrillation rate control. Otherwise, conservative cardiac management. Subjective Date of service: 03/19/19 Interval history: Patient is alert with confusion; resting in bed comfortably. Objective Vital Signs Temp Pulse Pulse Resp BP Pulse Ox 03/19/19 08:10 63 121/58 93 03/19/19 08:09 81 96 03/19/19 08:08 98.5 F 58 L 18 115/52 95 03/19/19 04:43 97.9 F 59 L 18 102/65 96 03/19/19 00:17 97.6 F 95 H 24 99/53 98 03/18/19 22:40 99 H 20 96 03/18/19 21:27 99 H 128/61 03/18/19 20:05 94 H 03/18/19 20:02 98.4 F 99 H 24 128/61 96 03/18/19 17:23 97.5 F L 73 16 109/59 90 - Physical Examination General: No Apparent Distress HEENT: Positive: PERRL Neck: Positive: trachea midline Cardiac: Positive: irregularly irregular Lungs: Positive: Decreased Breath Sounds Neuro: Positive: Weakness Extremities: Absent: edema - Labs and Meds CBC 03/19/19 Range/Units 05:55 WBC 17.3 H (4.5-11.0) K/mm3 RBC 4.62 (3.65-5.03) M/mm3 Hgb 13.2 (10.1-14.3) gm/dl Hct 40.9 (30.3-42.9) % Plt Count 179 (140-440) K/mm3 Lymph # 1.6 (1.2-5.4) K/mm3 Donley # 1.1 H (0.0-0.8) K/mm3 Eos # 0.0 (0.0-0.4) K/mm3 Baso # 0.0 (0.0-0.1) K/mm3
--- NOTE | 2019-03-19 12:04 | Progress Note ---
Assessment and Plan Cultures: 03/15/19 blood culture - NGTD 03/16/2019 wound culture - NGTD, no PMNs A/P: 73 yo F PMHx HTn, chronic sacral decub, CAD s/p CABG, DM2, DVT, PVD admitted with sepsis secondary to an infected chronic sacral decub. 1. Acute sepsis - present on admission with fevers, leukocytosis, tachycardia. Secondary to infected chronic sacral decub. 2. Infected chronic sacral decub - most likely gram positive etiology. i ordered wound cultures to be obtained by wound care. Would add cefepime for gram negative coverage at the present time. would not recommend treating for osteomyelitis course given overall prognosis and poor wound healing of the wound. Pending wound cultures will hopefully be able to have a pathogen directed antibiotic course for 2 weeks. 3. DM2 - tight glycemic control for improved wound healing. Recs: - MRSA negative, ok to de-escalate to cefazolin 2g q8h - anticipate completion of a 2 week course of antibiotics with PO on discharge pending culture finalization - Keflex 500 q6h PO stop date: 03/25/19 - follow up wound care Thank you for the consult, we will continue to follow. Lucila Caballero MD [facility] M: [phone] O: [phone] F: [phone] Subjective Date of service: 03/19/19 Interval history: No change, persistent leukocytosis. Objective - Exam Narrative Exam: Constitutional: Minimally responsive, no acute distress Head, Ears, Nose: Normocephalic, atraumatic. External ears, nose normal Eyes: Conjunctivae/corneas clear. No icterus. No ptosis. Neck: Supple, no meningeal signs Oral: dentition fair, no thrush Cardiovascular: S1, S2 normal. Respiratory: Good air entry, clear to auscultation bilaterally GI: Soft, non-tender; bowel sounds normal. No peritoneal signs. Musculoskeletal: No pedal edema, no cyanosis. Sacral decub noted on images in chart Skin: No rash or abscess Hem/Lymphatic: No palpable cervical or supraclavicular nodes. No lymphangitis Neurological: Non-responsive. No gross abnormality - Constitutional Vitals: Vital Signs Temp Pulse Resp BP Pulse Ox 98.5 F 63 18 121/58 93 03/19/19 08:08 03/19/19 08:10 03/19/19 08:08 03/19/19 08:10 03/19/19 08:10 Temperature -Last 24 Hours Temperature 98.5 F Temperature 97.9 F Temperature 97.6 F Temperature 98.4 F Temperature 97.5 F - Labs CBC & Chem 7: 03/19/19 05:55 03/17/19 05:43 Labs: Abnormal lab results 03/19/19 Range/Units 05:55 WBC 17.3 H (4.5-11.0) K/mm3 RDW 16.3 H (13.2-15.2) % Lymph % (Auto) 9.1 L (13.4-35.0) % [place] # 1.1 H (0.0-0.8) K/mm3 Seg Neutrophils % 84.3 H (40.0-70.0) % Seg Neutrophils # 14.6 H (1.8-7.7) K/mm3
[2019-03-19 13:38] VITALS: BP 117/66
[2019-03-19] MEDS: ACETAMINOPHEN 325 MG TAB PO PRN (14:08)
== END 2019-03-19 15:36 | disposition hospice, home (50) | DRG 871 ==
LOC: ED 08:29 → 2B-ACE 13:10 → 4A 03-16 17:54
PROVIDERS: ADMIT Internal Medicine; ATTEND Internal Medicine
DX: A41.9 Sepsis, unspecified organism (principal); G93.41 Metabolic encephalopathy; I21.A1 Myocardial infarction type 2; R53.2 Functional quadriplegia; I50.43 Acute on chronic combined systolic (congestive) and diastolic (congestive) heart failure; M62.82 Rhabdomyolysis; I42.9 Cardiomyopathy, unspecified; I48.19 Other persistent atrial fibrillation; Z66 Do not resuscitate; E11.51 Type 2 diabetes mellitus with diabetic peripheral angiopathy without gangrene; I25.10 Atherosclerotic heart disease of native coronary artery without angina pectoris; E86.0 Dehydration; L89.150 Pressure ulcer of sacral region, unstageable; I11.0 Hypertensive heart disease with heart failure; F03.90 Unspecified dementia, unspecified severity, without behavioral disturbance, psychotic disturbance, mood disturbance, and anxiety; R65.20 Severe sepsis without septic shock; Z74.01 Bed confinement status; Z86.718 Personal history of other venous thrombosis and embolism; Z95.1 Presence of aortocoronary bypass graft; I25.2 Old myocardial infarction; Z82.49 Family history of ischemic heart disease and other diseases of the circulatory system; Z83.3 Family history of diabetes mellitus; Z79.899 Other long term (current) drug therapy
CPT/HCPCS: 36415; 71045; 80048; 80053; 80061; 81001; 82140; 82550; 82553; 82962; 83735; 83880; 84484; 85025; 85027; 85610; 85730; 87040; 87076; 87086; 87116; 87186; 93005; 93010; 96374; G0378; A9270-GY; J0690; J0692; J1644; J2185; J3370; J7030; J7050